=== PATIENT | female | born 1935 | race Two or more races ===

== ENCOUNTER 2018-11-09 16:33 | Inpatient (IN) | payer OTHER ==
[2018-11-11] MEDS ORDERED: MAGNESIUM HYDROXIDE 30 ML UDCUP PO PRN (15:24)
[2018-11-11] MEDS ORDERED: BISACODYL 10 MG SUPP PR PRN (15:24)
[2018-11-11] MEDS ORDERED: MAG HYDROX/AL HYDROX/SIMETH 30 ML UDCUP PO PRN (15:24)
--- NOTE | 2018-11-11 17:00 | PDOREHIP ---
Admission [facility] - Admission - 3 Day Assessment Period Admission Date/Day 1: 11/11/18 Day 2: 11/12/18 Day 3: 11/13/18 - Active Diagnoses Comorbidities and Co-existing Conditions at Admission: 49957. None of the Above
[2018-11-11] MEDS: CARVEDILOL 6.25 MG TAB PO SCH (17:47)
--- NOTE | 2018-11-11 21:26 | GHP ---
[f rep st] HISTORY AND PHYSICAL DATE OF ADMISSION: 11/11/2018 REFERRING PHYSICIAN: Kamran IMPAIRMENT GROUP: 1.1, left body involvement (right brain). DATE OF ONSET: 11/04/2018. TIME: 1500 hours. REHABILITATION DIAGNOSIS: Debility with mild left upper and left lower extremity weakness due to CVA, status post coronary artery stent placement, weakness and history of falls. ETIOLOGIC DIAGNOSIS: Cerebrovascular accident. DATE OF SURGERY: 11/04/2018. HISTORY OF PRESENT ILLNESS: This is an 83-year-old female who is being transferred from [facility] for comprehensive rehabilitation. Upon discharge from [facility] where she was admitted on 11/04/2018 with a history of falls. Her son was present and helped provide some of the prehospitalization history. According to her son, she had become weak 2 weeks prior to admission and had 2 separate falls in the independent living facility where she resides. According to the son, the first fall resulted in her lying on the floor for approximately 12 hours and he was initially unaware of this fall. She had a second fall where she landed on her left shoulder and her son decided to take her to her primary care physician who decided that further evaluation at the [facility] Emergency Department was recommended to evaluate for possible recent cerebrovascular accident. When she was evaluated, MRI of the brain was not possible secondary to some type of metal fragments or implants in her eyes. Her son states that he has reviewed all of her medical records and cannot find any evidence or reason for her having metal in her eyes, but does recall that she has had several eye surgeries. Carotid ultrasound duplex studies were performed bilaterally and showed mild bilateral carotid bulb plaques. No hemodynamically significant stenosis was found. Cardiac workup was consistent with asymptomatic NSTEMI with positive EKG for ischemia and injury with positive troponins. She was also noted to have rhabdomyolysis, hypertension, and hypothyroidism. Chest x-ray was positive for mild bilateral basilar opacities, likely atelectasis. Echo TTE with bubble showed an ejection fraction of 65% with negative bubble study. The patient was noted to have UTI and started on IV antibiotics. The patient was taken to the medical lab assistant on 11/06 with stent placement to the LAD. She was noted to have total occlusion of the RCA and therefore stent placement was not possible. She returned to the ICU on nitroglycerin for blood pressure control as CVA not acute and permissive HTN not a priority. Hospital day #3, she was re-initiated on home dose of valsartan and recently started beta shayan was increased with subsequent discontinuation of nitroglycerin. TTE on admission revealed apical akinesis, although overall ejection fraction was normal. Repeat TTE on hospital day #3 with normal ejection fraction and improved apical function, likely secondary to PCI and subsequent reperfusion of LAD territory. At that point, she was deemed medically stable and was recommended to be discharged to rehab facility for further strengthening and conditioning with a goal of having her return to independent living without assistance. STUDIES AND LABS DURING HOSPITALIZATION: As per HPI. This workup included TTE x2, head CT without contrast showed no acute intracranial abnormality. Chest x- ray showed mild bilateral basilar opacities likely atelectasis. Ultrasound carotid duplex bilateral showed mild bilateral carotid bulb plaque, no hemodynamically significant stenosis. Cardiac catheterization-discussed in HPI. VINCENZO also discussed in HPI. The received discharge summary did not include any laboratory studies. PRECAUTIONS: She is a fall risk. Aspiration precautions until cleared by speech therapy. Cardiac precautions. ACTIVE COMORBIDITIES: Coronary artery disease. PAST MEDICAL HISTORY: Hypertension, hypothyroidism, history of falls. PAST SURGICAL HISTORY: Cardiac stent placement, 11/06/2018. PRE-HOSPITAL MEDICATIONS: Hydrochlorothiazide and levothyroxine. ADMISSION MEDICATIONS: Aspirin EC 81 mg p.o. daily, atorvastatin calcium 80 mg p.o. at h.s. , carvedilol 12.5 mg p.o. twice daily, clopidogrel 75 mg daily, diclofenac sodium topical to left shoulder, levothyroxine 25 mcg p.o. daily, and valsartan 320 mg p.o. daily. ALLERGIES: No known drug allergies. PSYCHOSOCIAL HISTORY: She is . She lives in an independent living facility in [place]. Her son lives nearby and helps assist with and supervise medical care. Previously, she was functioning at a completely independent level prior to recent hospitalization. Nonsmoker. FAMILY HISTORY: Noncontributory. REVIEW OF SYSTEMS: CONSTITUTION: Denies fever, chills, night sweats or recent weight loss. HEENT: Denies dizziness. PULMONARY: Denies shortness of breath. CARDIAC: Denies chest pain, denies tongue claudication, jaw claudication or neck pain. Denies left upper extremity numbness or tingling. : She reports incontinence and wears an adult diaper for this. She denies dysuria. GI: Denies abdominal pain. Reports continence of bowel. NEUROLOGIC: Denies upper or lower extremity numbness, tingling, or weakness. PSYCH: Denies anxiety or depression. SKIN: She notes skin breakdown of both elbows. Otherwise, 10-point review of systems was negative. PHYSICAL EXAM: VITALS: Blood pressure 108/65, pulse 62, O2 saturation on room air 95%. CONSTITUTION: Lean, pleasant female, NAD. PSYCH: Pleasant and cooperative. Good historian. HEENT: EOMI, pupils equal, round, reactive to light and accommodation. Mucous membranes are mildly dry. Good dentition. Halitosis. HEART: Regular rate and rhythm without murmurs, rubs, or gallops. Good capillary refill in both lower extremities. LUNGS: Clear to auscultation bilaterally. ABDOMEN: Normoactive bowel sounds all 4 quadrants. Nontender. No hepatosplenomegaly. LYMPH: No lower extremity edema. CARDIOVASCULAR: Negative Homans test bilaterally. SKIN: She has ecchymoses over both elbows with Dermaguard on the left elbow. No swelling over the olecranon bursa. MUSCULOSKELETAL: Active range of motion of both shoulders is within normal limits with forward flexion and abduction to at least 140 degrees. She does report some mild subacromial pain at end range of left shoulder abduction. Normal and pain free right and left elbow flexion and extension, normal pain- free right and left wrist flexion, extension. Range of motion of the right and left hips, knees, and ankles are all within normal limits. No heel cord tightness noted bilaterally. NEUROLOGIC: Alert and oriented x3. Cranial nerves 2 -12 grossly intact. Motor testing reveals 4/5 strength of the left anterior and middle deltoid, biceps and wrist extensors. 5/5 internal, external rotators, left shoulder, 5/5, supraspinatus, left shoulder. Grossly normal motor exam, right upper and both lower extremities. Muscle stretch reflexes were unelicitable in the upper and lower extremities. Sensation to light touch was intact dermatomes C4-T1 and L2-S1 bilaterally. CURRENT LEVEL OF FUNCTION: Per the preadmission screen, she is on a regular diet, needs assisting for grooming and bathing. She is max assist with dressing upper and lower body. Needs assistance for toileting. Bladder: Not recorded on prescreen admission, but is wearing an adult diaper due to incontinence. Bowel: To be determined. Bed mobility: Mod assist x2. Toilet transfers: Min assist with FWW. Tub transfer: FWW. Shower transfer: Sitting SBA to CG. Standing CG to SBA. Good endurance. Able to walk 140 feet with min assist using FWW with a second assist to follow with wheelchair. The patient has a shuffling gait pattern and narrow JOSE. Assist for left handgrip on walker handle. Wheelchair use TBA. Stairs TBA. Safety precautions: She is a fall risk. Cognition: To be determined per Speech and Language Pathology. IMPRESSION: An 83-year-old female with recent history of falls x2, who was admitted to [facility] for further workup for suspected cerebrovascular accident. The patient had a head CT, which did not show evidence of intracranial abnormality. The patient could not have an MRI due to possible metal clips or metal artifact in the orbits. Cardiac workup showed NSTEMI with elevated troponins. She was taken to the medical lab assistant where she had a stent placed into the LAD. The RCA was completely occluded and could not be stented. She was stabilized in the ICU. Her blood pressure medications were adjusted and stabilized on carvedilol 12.5 mg twice daily. She was started on Lipitor, Plavix , and enteric-coated aspirin as well. She was felt to be medically stable enough to be transferred to a rehab facility. Her goal is to complete a rehabilitation stay and then to return back to her independent living facility. For safe discharge, it is expected that she will achieve independence in mobility and ADLs. If this is not accomplished, then she most likely will need to be placed in assisted living. She is admitted for comprehensive rehabilitation therapy, including physical therapy, occupational therapy, and speech and language pathology for 60 minutes per day for each discipline 5 to 7 days per week. Expected length of stay is 10 to 14 days. ASSESSMENT AND PLAN: 1. Hypertension. Monitor blood pressure each shift. Current blood pressure medication includes carvedilol 12.5 mg p.o. twice daily. The discharge summary also states that she is to begin valsartan 320 mg p.o. daily beginning on 2018. I have asked the nursing staff to confirm this with her physician from [facility]. We will continue to monitor blood pressures daily. 2. Hypothyroidism. Continue levothyroxine sodium 25 mcg p.o. daily. 3. Prophylaxis, cardiac. Continue Plavix 75 mg daily. Continue aspirin EC 81 mg daily. Continue Lipitor 80 mg p.o. h.s. 4. Pain management. Tylenol 650 mg p.o. q.4 hours p.r.n. pain. Diclofenac sodium topical gel, apply to left shoulder as needed for pain. 5. Risk for dehydration. We will check a basic metabolic profile in the morning. She is currently on a regular diet and do not expect this to change, unless deemed otherwise following speech and language pathology consult. P.o. fluids encouraged. 6. Left shoulder pain, probable rotator cuff contusion following fall on the left shoulder prior to hospitalization. Currently has normal glenohumeral abduction, forward flexion and internal, external rotation. Has normal strength of rotator cuff muscles. We will ask Physical therapy to provide exercises to strengthen the rotator cuff muscles, monitor for signs of impingement. 7. Deep venous thrombosis prophylaxis. Currently on enteric-coated aspirin 81 mg p.o. daily. We have ordered SCDs. 8. Wound care. She has abrasions on both elbows, more pronounced on the left. [place] Guard is in place on the left elbow. Nursing to provide wound care each shift. FOLLOWUP: Dr. Jamison Murillo, ; [facility], [phone]. DICTATION ENDS HERE. /[id number]/MODL and [id number]/MODL [facility]
[2018-11-11] MEDS: ATORVASTATIN CALCIUM 40 MG TAB PO SCH (21:40)
[2018-11-11] MEDS: SENNOSIDES/DOCUSATE SODIUM TAB PO SCH (21:40)
[2018-11-12] MEDS: LEVOTHYROXINE 25 MCG TAB PO SCH (05:44)
[2018-11-12 05:46] LABS: PLATELET COUNT 304 10^3/uL (150-400)
[2018-11-12] MEDS: CLOPIDOGREL BISULFATE 75 MG TAB PO SCH (10:36)
[2018-11-12] MEDS: ASPIRIN EC 81 MG TAB PO SCH (10:36)
[2018-11-12] MEDS: CARVEDILOL 6.25 MG TAB PO SCH ×2 (10:36→18:08)
[2018-11-12] MEDS: VALSARTAN 160 MG TAB PO SCH (10:37)
[2018-11-12] MEDS: SENNOSIDES/DOCUSATE SODIUM TAB PO SCH ×2 (10:37→20:05)
--- NOTE | 2018-11-12 11:57 | SOAPPROG ---
SOAP Progress Note Assessment/Plan: Assessment: ASSESSMENT AND PLAN: 1. Hypertension. Monitor blood pressure each shift. Current blood pressure medication includes carvedilol 12.5 mg p.o. twice daily. Blood pressure this morning 128/59. This may be secondary to the 2nd antihypertensive agent, valsartan being added. Will consult hospitalist further opinion regarding blood pressure management as she may do well on just 1 agent. The discharge summary also states that she is to begin valsartan 320 mg p.o. daily beginning on 11/12/2018. I have asked the nursing staff to confirm this with her physician from [facility]. We will continue to monitor blood pressures daily. 2. Hypothyroidism. Continue levothyroxine sodium 25 mcg p.o. daily. 3. Prophylaxis, cardiac. Continue Plavix 75 mg daily. Continue aspirin EC 81 mg daily. Continue Lipitor 80 mg p.o. h.s. 4. Pain management. Tylenol 650 mg p.o. q.4 hours p.r.n. pain. Diclofenac sodium topical gel, apply to left shoulder as needed for pain. 5. Risk for dehydration. We will check a basic metabolic profile in the morning. She is currently on a regular diet and do not expect this to change, unless deemed otherwise following speech and language pathology consult. P.O fluids encouraged. 6. Left shoulder pain, probable rotator cuff contusion following fall on the left shoulder prior to hospitalization. Currently has normal glenohumeral abduction, forward flexion and internal, external rotation. Has normal strength of rotator cuff muscles. We will ask Physical therapy to provide exercises to strengthen the rotator cuff muscles, monitor for signs of impingement. 7. Deep venous thrombosis prophylaxis. Currently on enteric-coated aspirin 81 mg p.o. daily. We have ordered SCDs. 8. Wound care. She has abrasions on both elbows, more pronounced on the left. [place] Guard is in place on the left elbow. Nursing to provide wound care each shift. 9. DISCHARGE DISPOSITION. Initial approval for inpatient rehabilitation 7 days. Discharge goal is to have her return to her independent living facility with some type of assistive device, probably a front wheeled walker. FOLLOWUP: Dr. Jamison Murillo, ; [facility], . Plan: 11/12/18 11:48 Subjective: No specific complaints this morning. Reports mild weakness of her left arm and left leg. Denies headache, denies feeling lightheaded. Objective: Vital Signs Temp Pulse Resp BP Pulse Ox 36.6 C 65 15 128/59 H 93 11/12/18 05:52 11/12/18 10:36 11/12/18 05:52 11/12/18 10:37 11/12/18 05:52 Laboratory Results 11/12/18 05:07 11/12/18 05:07 11/11/18 11/12/18 11/13/18 05:59 05:59 05:59 Intake Total 450 Output Total 800 300 Balance -350 -300 Physical Exam - Physical Exam General Appearance: WD/WN, alert, no apparent distress Respiratory: lungs clear, normal breath sounds Abdomen: normal bowel sounds, non-tender, soft Skin: other (Abrasions on both) Extremities: No swelling, No Ilana's sign Neuro/Psych: motor weakness (Mild left upper and left lower extremity weakness but has antigravity strength in all major muscle groups) ICD10 Worksheet Patient Problems: Problems Problem Status Onset CVA (cerebral vascular accident) Acute - ICD10 Problem Qualifiers (1) CVA (cerebral vascular accident)
--- NOTE | 2018-11-12 12:02 | PDOREHIP ---
Admission [facility] - Admission - 3 Day Assessment Period Admission Date/Day 1: 11/11/18 Day 2: 11/12/18 Day 3: 11/13/18 - Active Diagnoses Comorbidities and Co-existing Conditions at Admission: 27558. PVD or PAD ( Coronary artery disease) - Skin Conditions Unhealed Pressure Ulcer (1 or more/Stage 1 or >)-Admission: 0. No # Stage 1 Pressure Ulcers-Admission: 0 # Stage 2 Pressure Ulcers-Admission: 0 # Stage 3 Pressure Ulcers-Admission: 0 # Stage 4 Pressure Ulcers-Admission: 0 # Unstageable Pressure Ulcers (Non-remove Dress)-Admission: 0 # Unstageable Pressure Ulcers (Slough/Eschar)-Admission: 0 # Unstageable Pressure Ulcers (Deep Tissue Injury)-Admission: 0
--- NOTE | 2018-11-12 12:48 | WOCRNPDOC ---
WOCRN Advanced Assessment Note - Skin Integrity Problem, Advanced Assess Left Elbow Dressing Type: Hydrocolloid Dressing Description: Clean/Dry, Intact Wound Bed Color: [place] Wound Bed Constitution: Healed Wound Edges: Epithelizing Skin Integrity Problem Comment: Dressing removed gently to reveal newly epithelized wound to left elbow of unknown etiology, possibly skin tear. Will recommend to protect bilateral elbows with dressing. Cheryl HOANG in room for care. Wound care will sign off. Reconsult if needed. Coccyx Dressing Type: Mepilex Border Dressing Description: Clean/Dry, Intact Wound Bed Constitution: Healed Wound Edges: Epithelizing Site Measurement - Head-to-Toe Length X Width X Depth (cm): 2x3x0 Pressure Injury Present on Admit: Yes Skin Integrity Problem Comment: Healed sacral pressure injury. Will continue to protect with Mepilex Border sacral dressing. Cheryl HOANG in room for assessment. Wound care will sign off.
[2018-11-12] MEDS: ATORVASTATIN CALCIUM 40 MG TAB PO SCH (20:05)
[2018-11-13] MEDS: ACETAMINOPHEN 325 MG TAB PO PRN (02:18)
[2018-11-13] MEDS: LEVOTHYROXINE 25 MCG TAB PO SCH (05:43)
[2018-11-13] MEDS: SENNOSIDES/DOCUSATE SODIUM TAB PO SCH ×2 (08:31→20:15)
[2018-11-13] MEDS: VALSARTAN 160 MG TAB PO SCH (08:31)
[2018-11-13] MEDS: CLOPIDOGREL BISULFATE 75 MG TAB PO SCH (08:31)
[2018-11-13] MEDS: CARVEDILOL 6.25 MG TAB PO SCH ×2 (08:31→17:43)
[2018-11-13] MEDS: ASPIRIN EC 81 MG TAB PO SCH (08:31)
[2018-11-13] MEDS: DICLOFENAC SODIUM 1% 100 GM GEL TP PRN ×2 (10:03→20:29)
--- NOTE | 2018-11-13 11:41 | SOAPPROG ---
SOAP Progress Note Assessment/Plan: ASSESSMENT AND PLAN: Weakness. Patient reports increased weakness compared to 24 hr prior. This has also been noted by rehab staff. On this morning's rounds, patient reports feeling generally weak and but does not describe new onset weakness of left upper or left lower extremity. Mental status change. Patient is alert and oriented and answers questions appropriately on this morning's exam however during team meeting this morning all involved therapy staff also agree that patient has change in mental status regarding sequencing during therapy sessions and talking tangentially. Will obtain head CT today to rule out new cerebrovascular accident. Will obtain CBC with differential, Chem 7 and urinalysis as part of workup. Hypertension. Current blood pressure medication includes carvedilol 12.5 mg p.o. twice daily. Blood pressure this morning 128/59. This may be secondary to the 2nd antihypertensive agent, valsartan being added. The discharge summary also states that she is to begin valsartan 320 mg p.o. daily beginning on 11/12/2018. I have asked the nursing staff to confirm this with her physician from [facility]. We will continue to monitor blood pressures daily. Hypothyroidism. Continue levothyroxine sodium 25 mcg p.o. daily. Will check TFTs today. Prophylaxis, cardiac. Continue Plavix 75 mg daily. Continue aspirin EC 81 mg daily. Continue Lipitor 80 mg p.o. h.s. Pain management. Tylenol 650 mg p.o. q.4 hours p.r.n. pain. Diclofenac sodium topical gel, apply to left shoulder as needed for pain. Risk for dehydration. We will check a basic metabolic profile in the morning. She is currently on a regular diet and do not expect this to change, unless deemed otherwise following speech and language pathology consult. P.O fluids encouraged. Left shoulder pain, probable rotator cuff contusion following fall on the left shoulder prior to hospitalization. Currently has normal glenohumeral abduction, forward flexion and internal, external rotation. Has normal strength of rotator cuff muscles. We will ask Physical therapy to provide exercises to strengthen the rotator cuff muscles, monitor for signs of impingement. Deep venous thrombosis prophylaxis. Currently on enteric-coated aspirin 81 mg p.o. daily and enteric-coated aspirin. We have ordered SCDs. Wound care. She has abrasions on both elbows, more pronounced on the left. [place] Guard is in place on the left elbow. Nursing to provide wound care each shift. DISCHARGE DISPOSITION. Initial approval for inpatient rehabilitation 7 days. Discharge goal is to have her return to her independent living facility with some type of assistive device, probably a front wheeled walker. FOLLOWUP: Dr. Jamison Murillo, ; [facility], . Subjective: She reports that she feels weak this morning. She has no specific complaints regarding new onset of pain and/or left upper or lower extremity sensory disturbance or progressive weakness. Denies anginal like symptoms. Does not report jaw or tongue claudication Denies shortness of breath. Rehab staff during team meeting conveys possible change in mental status with patient being less organized and at time tangential which is a clear change from yesterday with all of rehab staff agreeing. Objective: Vital Signs Temp Pulse Resp BP Pulse Ox 36.3 C 74 15 144/78 H 92 11/13/18 05:49 11/13/18 08:31 11/13/18 05:49 11/13/18 08:31 11/13/18 05:49 Laboratory Results 11/12/18 05:07 11/12/18 05:07 11/12/18 11/13/18 11/14/18 05:59 05:59 05:59 Intake Total 450 750 400 Output Total 800 600 Balance -350 150 400 Physical Exam - Physical Exam General Appearance: WD/WN, alert, moderate distress EENT: PERRL/EOMI, other (Oral mucosa moist), No scleral icterus (R), No scleral icterus (L) Neck: supple, normal inspection Respiratory: normal breath sounds, other (Tachypneic at 32), No crackles, No rales, No rhonchi, No stridor, No wheezing Cardiac/Chest: regular rate, rhythm, other (Pulse 60 and regular), No edema, No JVD Abdomen: normal bowel sounds, non-tender, soft, distended Skin: normal color, warm/dry Extremities: No swelling, No Ilana's sign ICD10 Worksheet Patient Problems: Problems Problem Status Onset CVA (cerebral vascular accident) Acute Weakness Acute - ICD10 Problem Qualifiers (1) Weakness
[2018-11-13 12:22] LABS: PLATELET COUNT 315 10^3/uL (150-400)
--- NOTE | 2018-11-13 17:57 | GCON ---
[f rep st] CONSULTATION NEUROLOGIC CONSULTATION REFERRING PHYSICIAN: Gonzalo Chiu MD HISTORY: The patient is an 83-year-old woman who is here on the rehab service for rehabilitation fol lowing a stroke where she presented in [place], and coronary disease status post stenting procedure. History is obtained from discussions with her son, as well as reviewing the medical records. The r melquiades I was consulted today was because she seemed relatively worse and was particularly fatigued com pared to where she had been. The patient had a head CT at [facility], which was negative, but N eurology definitely felt she had a stroke and she had documentation of left arm and leg weakness. Jossy casas has started the rehabilitation process here and says she just feels tired. She does not have a prior history of known stroke, but over the last 3 weeks she had been having some troubles with her left hand. She was actually put on heparin while she was in the hospital there, p resumably for concern that there might be a pre-occlusive process. The transthoracic echocardiogram did not show a PFO or any embolic source. The carotid ultrasounds s howed mild plaquing. PAST MEDICAL HISTORY: Prior history of hypertension, hypothyroidism, and cataract surgery. She is an independent living facility prior to this hospitalization in [place], but over a week ago she had fallen and was not found until the next day. On admission here to the rehab service, she was noted to have intact cranial nerves and some 4/5 stre ngth in the left upper extremity. Otherwise, no focal weakness. REVIEW OF SYSTEMS: She denies chest pain, palpitations, or shortness of breath, but says she has a l ot of fatigue and low energy. PHYSICAL EXAMINATION: CURRENT VITAL SIGNS: Blood pressure is 144/78, pulse of 74, respirations 15, temperature 36.3. GENERAL: She is a well-developed, lying in the bed, frail, older woman who is reyes y thin. HEENT: Pupils 3 mm and reactive. Extraocular movements intact. Normal facial sensation an d strength. Palate elevates symmetrically. Tongue protrudes midline. NEUROLOGIC: She is fully selene ented and able to follow commands. She has a drift in the left upper extremity with 4/5 strength. R ight upper extremity is minimally weak relative to the left. Lower extremities, there is mild proxim al muscle weakness, 4/5, but distally about the same, and I cannot detect a clear asymmetry there. R eflexes are about 1+ and symmetric. Sensation is preserved. She has discoordinated movements that a re prominent in the left arm on [id number] compared to the right. I reviewed the head CT and agree with radiologic interpretation of probable subacute infarctions in t he right basal ganglia region and in the head of the caudate. IMPRESSION: Total unit time of 55 minutes. The patient has an NIH Stroke Scale of 2. She probably had this stroke, as they felt already in [place], but the imaging was negative and certainly did not rule it out. Now we are capturing the evolution of stroke in the basal ganglia and she is probably getting a little relative worsening with the edema. That should gradually stabilize. She is on a co mbination of aspirin and Plavix with a recent stent and that is appropriate for secondary stroke prop hylaxis as well. She is already on statin therapy, which she should continue indefinitely. No addit ional neurologic workup is required here and I will sign off, but happy to answer any additional ques tions as they may arise. /[id number]/MODL
[2018-11-13] MEDS: ATORVASTATIN CALCIUM 40 MG TAB PO SCH (20:15)
[2018-11-14] MEDS: LEVOTHYROXINE 25 MCG TAB PO SCH (05:53)
[2018-11-14] MEDS: ASPIRIN EC 81 MG TAB PO SCH (09:06)
[2018-11-14] MEDS: CARVEDILOL 6.25 MG TAB PO SCH ×2 (09:06→17:35)
[2018-11-14] MEDS: CLOPIDOGREL BISULFATE 75 MG TAB PO SCH (09:06)
[2018-11-14] MEDS: VALSARTAN 160 MG TAB PO SCH (09:06)
[2018-11-14] MEDS: SENNOSIDES/DOCUSATE SODIUM TAB PO SCH ×2 (09:07→20:27)
--- NOTE | 2018-11-14 10:05 | SOAPPROG ---
SOAP Progress Note Assessment/Plan: ASSESSMENT AND PLAN: CVA with mild left hemiparesis. Left upper extremity weakness greater than left lower extremity weakness but not worsened compared to admission exam. Has functional strength in both left upper and left lower extremity. Due to possible change in mental status yesterday, repeat head CT without contrast was obtained and showed subacute infarct in the right basal ganglia and adjacent to the right caudate. Discussed case with Dr. Harper who saw patient in consultation. Consult reviewed and appreciated. No additional diagnostic studies or change in treatment plan was recommended. Possible UTI. Urinalysis results from 11/13 Nitrate negative, leuk esterase +1 , WBCs 15-25. Did not obtain culture and sensitivity and therefore will repeat urinalysis and have ordered culture if indicated. Her white count from 11/13 was elevated at 10 and was noted to be increased from prior WBC of 5.99 on admission. Leukocytosis. White blood count from 11/13 10.0. Possible UTI. Repeating UA with culture if indicated today Hypertension. Blood pressure on 11/14 135/61. Current blood pressure medication includes carvedilol 12.5 mg p.o. twice daily. Blood pressure 11/13 128/59. This may be secondary to the 2nd antihypertensive agent, valsartan being added. Will hold valsartan and continue to monitor daily blood pressures. The discharge summary states that she is to begin valsartan 320 mg p.o. daily beginning on 11/12/2018. Hypothyroidism. Continue levothyroxine sodium 25 mcg p.o. daily. Thyroid stimulating hormone from 11/13 1.64 Prophylaxis, cardiac. Continue Plavix 75 mg daily. Continue aspirin EC 81 mg daily. Continue Lipitor 80 mg p.o. h.s. No changes recommended per Neurology consult on 11/13 Pain management. Tylenol 650 mg p.o. q.4 hours p.r.n. pain. Diclofenac sodium topical gel, apply to left shoulder as needed for pain. Risk for dehydration. BUN/CREATININE FROM 11/13 WAS 13/0.6. She is currently on a regular diet and do not expect this to change, unless deemed otherwise following speech and language pathology consult. P.O fluids encouraged. Left shoulder pain, probable rotator cuff contusion following fall on the left shoulder prior to hospitalization. Currently has normal glenohumeral abduction, forward flexion and internal, external rotation. Has normal strength of rotator cuff muscles. We will ask Physical therapy to provide exercises to strengthen the rotator cuff muscles, monitor for signs of impingement. Deep venous thrombosis prophylaxis. Currently on enteric-coated aspirin 81 mg p.o. daily and enteric-coated aspirin. We have ordered SCDs. NO CHANGES RECOMMENDED PER NEUROLOGY CONSULTATION ON 11/13 Wound care. She has abrasions on both elbows, more pronounced on the left. [place] Guard is in place on the left elbow. Nursing to provide wound care each shift. DISCHARGE DISPOSITION. Initial approval for inpatient rehabilitation 7 days. Discharge goal is to have her return to her independent living facility with some type of assistive device, probably a front wheeled walker. FOLLOWUP: Dr. Jamison Murillo, ; [facility], [phone]. 11/14/18 10:03 11/14/18 10:05 11/14/18 10:06 Subjective: She complains of the weakness in the left hand and left leg, but does not describe worsening left-sided weakness or numbness in the face or new onset dysphagia. Objective: Vital Signs Temp Pulse Resp BP Pulse Ox 36.8 C 65 16 135/61 H 96 11/14/18 07:16 11/14/18 09:06 11/13/18 19:41 11/14/18 09:06 11/13/18 19:41 Laboratory Results 11/13/18 12:00 11/13/18 12:00 11/13/18 11/14/18 11/15/18 05:59 05:59 05:59 Intake Total 750 1250 Output Total 600 500 50 Balance 150 750 -50 Physical Exam - Physical Exam General Appearance: WD/WN, alert, no apparent distress, other (Appears less anxious this morning.) EENT: PERRL/EOMI, pharynx normal Respiratory: lungs clear, normal breath sounds Cardiac/Chest: regular rate, rhythm, No edema Abdomen: normal bowel sounds, non-tender, soft Skin: warm/dry Extremities: No swelling, No Ilana's sign (Left upper greater than left lower extremity weakness but has preserved functional strength in left upper and left lower extremity. 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 4/5 left hip flexors, quadriceps, hamstring and tibialis anterior) Neuro/Psych: alert, normal mood/affect, oriented x 3, motor weakness ICD10 Worksheet Patient Problems: Problems Problem Status Onset CVA (cerebral vascular accident) Acute Weakness Acute - ICD10 Problem Qualifiers (1) Weakness
[2018-11-14] MEDS: ATORVASTATIN CALCIUM 40 MG TAB PO SCH (20:27)
[2018-11-15] MEDS: LEVOTHYROXINE 25 MCG TAB PO SCH (06:10)
[2018-11-15] MEDS: CARVEDILOL 6.25 MG TAB PO SCH ×2 (08:16→17:28)
[2018-11-15] MEDS: CLOPIDOGREL BISULFATE 75 MG TAB PO SCH (08:17)
[2018-11-15] MEDS: ASPIRIN EC 81 MG TAB PO SCH (08:17)
[2018-11-15] MEDS: SENNOSIDES/DOCUSATE SODIUM TAB PO SCH ×2 (08:17→20:15)
--- NOTE | 2018-11-15 09:57 | SOAPPROG ---
SOAP Progress Note Assessment/Plan: ASSESSMENT AND PLAN: CVA with mild left hemiparesis. MOTOR EXAM THIS MORNING DEMONSTRATES 4+/5 PROXIMAL AND DISTAL MUSCLE GROUPS OF BOTH UPPER AND LOWER EXTREMITIES. 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 Due to possible change in mental status FRIDAY, repeat head CT without contrast was obtained and showed subacute infarct in the right basal ganglia and adjacent to the right caudate. Discussed case with Dr. Harper who saw patient in consultation. Consult reviewed and appreciated. No additional diagnostic studies or change in treatment plan was recommended. Possible UTI. URINALYSIS WAS REPEATED YESTERDAY BECAUSE INITIAL UA DID NOT INCLUDE CULTURE IF INDICATED. LEUK ESTERASE 1+, WBC 15-25, TRACE BACTERIA. CULTURE PENDING. Her white count from 11/13 was elevated at 10 and was noted to be increased from prior WBC of 5.99 on admission. Leukocytosis. White blood count from 11/13 10.0. Possible UTI. WILL REPEAT CBC WITH DIFF FOR 11/16. WILL START ON BACTRIM DS EMPIRICALLY. PATIENT'S ONLY SYMPTOMS ARE FREQUENCY AND URGENCY AT NIGHT. NO COMPLAINTS OF DYSURIA OR SUPRAPUBIC PAIN. NO SUPRAPUBIC TENDERNESS ON EXAM. WILL OBTAIN CHEST X-RAY PA AND LATERAL RULE OUT PNEUMONIA HYPONATREMIA. BEGIN SODIUM CHLORIDE TABLETS 1 MG THREE TIMES DAILY WITH MEALS. FLUID RESTRICTION OF 1 L NEXT 48 HR. REPEAT BMP A.M. OF 11/16. NOCTURIA-PATIENT AND NURSING STAFF REPORTED URINARY FREQUENCY AND URGENCY LAST NIGHT WITH LITTLE OUTPUT. PATIENT TRIED EXTERNAL CATHETER WITHOUT SUCCESS. SYMPTOMS POSSIBLY RELATED TO UTI ALTHOUGH IT URINALYSIS RESULTS NOT VERY IMPRESSIVE FOR UTI. WE WILL BEGIN BACTRIM DS TWICE DAILY EMPIRICALLY. BEGIN TAMSULOSIN 0.4 MG TONIGHT. PVRs x 2 order written nurses made aware. Hypertension. BLOOD PRESSURE THIS MORNING, 11/15 137/60. Current blood pressure medication includes carvedilol 12.5 mg p.o. twice daily. Blood pressure 11/13 128/59. This may be secondary to the 2nd antihypertensive agent, valsartan being added. Will hold valsartan and continue to monitor daily blood pressures. The discharge summary states that she is to begin valsartan 320 mg p.o. daily beginning on 11/12/2018. Hypothyroidism. Continue levothyroxine sodium 25 mcg p.o. daily. Thyroid stimulating hormone from 04/12 1.64 Prophylaxis, cardiac. Continue Plavix 75 mg daily. Continue aspirin EC 81 mg daily. Continue Lipitor 80 mg p.o. h.s. No changes recommended per Neurology consult on 11/13 Pain management. Tylenol 650 mg p.o. q.4 hours p.r.n. pain. Diclofenac sodium topical gel, apply to left shoulder as needed for pain. Risk for dehydration. BUN/CREATININE FROM 11/13 WAS 13/0.6. She is currently on a regular diet and do not expect this to change, unless deemed otherwise following speech and language pathology consult. P.O fluids encouraged. Left shoulder pain, probable rotator cuff contusion following fall on the left shoulder prior to hospitalization. Currently has normal glenohumeral abduction, forward flexion and internal, external rotation. Has normal strength of rotator cuff muscles. We will ask Physical therapy to provide exercises to strengthen the rotator cuff muscles, monitor for signs of impingement. Deep venous thrombosis prophylaxis. Currently on enteric-coated aspirin 81 mg p.o. daily and enteric-coated aspirin. We have ordered SCDs. NO CHANGES RECOMMENDED PER NEUROLOGY CONSULTATION ON 11/13 Wound care. She has abrasions on both elbows, more pronounced on the left. [place] Guard is in place on the left elbow. Nursing to provide wound care each shift. DISCHARGE DISPOSITION. Initial approval for inpatient rehabilitation 7 days. Discharge goal is to have her return to her independent living facility with some type of assistive device, probably a front wheeled walker. FOLLOWUP: Dr. Jamison Murillo, ; [facility], [phone]. 11/15/18 09:58 Subjective: Patient and nursing staff report that she had urinary frequency last night with very little output. External catheter was tried but was not helpful and was subsequently removed. Patient denies dysuria, suprapubic pain or current feeling of urgency. Objective: Vital Signs Temp Pulse Resp BP Pulse Ox 36.9 C 68 16 137/60 H 92 11/15/18 05:59 11/15/18 08:16 11/15/18 05:59 11/15/18 08:16 11/15/18 05:59 Laboratory Results 11/13/18 12:00 11/13/18 12:00 11/14/18 11/15/18 11/16/18 05:59 05:59 05:59 Intake Total 1250 560 Output Total 500 450 Balance 750 110 Physical Exam - Physical Exam General Appearance: alert, no apparent distress Respiratory: lungs clear, normal breath sounds Cardiac/Chest: regular rate, rhythm, No edema Abdomen: normal bowel sounds, non-tender, soft, other (No suprapubic tenderness) Skin: warm/dry Extremities: No swelling, No Ilana's sign Neuro/Psych: alert, normal mood/affect, oriented x 3, motor weakness (Has 4+/5 proximal distal muscle groups right and left upper and lower extremities.), No speech abnormalities ICD10 Worksheet Patient Problems: Problems Problem Status Onset CVA (cerebral vascular accident) Acute Weakness Acute - ICD10 Problem Qualifiers (1) Weakness
[2018-11-15] MEDS ORDERED: SULFAMETHOX/TMP 800/160 MG 1 TAB PO SCH (10:00)
[2018-11-15] MEDS: SODIUM CHLORIDE 1,000 MG TAB PO SCH ×2 (11:59→17:29)
[2018-11-15] MEDS: TAMSULOSIN HCL 0.4 MG CAP PO SCH (18:23)
[2018-11-15] MEDS: ATORVASTATIN CALCIUM 40 MG TAB PO SCH (20:36)
[2018-11-16 05:20] LABS: PLATELET COUNT 340 10^3/uL (150-400)
[2018-11-16] MEDS: LEVOTHYROXINE 25 MCG TAB PO SCH (06:26)
[2018-11-16] MEDS: CARVEDILOL 6.25 MG TAB PO SCH ×2 (08:57→18:00)
[2018-11-16] MEDS: SODIUM CHLORIDE 1,000 MG TAB PO SCH ×3 (08:58→18:00)
[2018-11-16] MEDS: ASPIRIN EC 81 MG TAB PO SCH (08:58)
[2018-11-16] MEDS: CLOPIDOGREL BISULFATE 75 MG TAB PO SCH (08:58)
[2018-11-16] MEDS: TAMSULOSIN HCL 0.4 MG CAP PO SCH (08:58)
[2018-11-16] MEDS: VALSARTAN 160 MG TAB PO SCH (08:58)
[2018-11-16] MEDS: SENNOSIDES/DOCUSATE SODIUM TAB PO SCH ×2 (08:59→20:57)
--- NOTE | 2018-11-16 13:12 | SOAPPROG ---
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 Standby to minimal assist for bed mobility. Minimal assist for transfers. Ambulated less than 50 ft with front wheeled walker and cues. Grooming and hygiene are done seated with standby assist. Dressing upper and lower body require with maximal assist. Cognitive impairment with decreased attention and tangentiality. Was assessed by speech language pathology and no further treatment is indicated. Question of dysphagia. Will have reassessment per speech language pathology, . Question of UTI. Was begun on Bactrim for leukocytosis and subsequently changed to cephalexin. She denies, and staff have not documented, symptoms consistent with UTI. Symptoms of urinary retention appear to have improved with tamsulosin. Urine culture has grown Enterococcus faecalis which is likely resistant to cephalexin and Bactrim, and most likely represents asymptomatic bacteriuria. * Discontinue antibiotics 11/16/2018. Observe for signs or symptoms of UTI. Hyponatremia * Improving on labs 11/16/2018, with an a 132. Continue fluid restriction and sodium chloride tablets. * Recheck BMP 11/18/2018. Anemia, slight worsening on labs 11/16/2018. * And reticulocyte count to labs of 11/16/2018. NSTEMI status post angioplasty and stenting of LAD; also distal RCA lesion that was not stentable. * Continue clopidogrel 75 mg daily. Continue aspirin EC 81 mg daily. Continue atorvastatin 80 mg p.o. h.s. Hypertension. Continue carvedilol and valsartan. Hypothyroidism. Continue levothyroxine. Contact isolation for MRSA positive nasal smear in the hospital. * Per e-mail communication from infectious disease: chlorhexidine wash daily and Bactroban to nares bid X 3 days without need for isolation thereafter. Will clarify instructions regarding chlorhexidine wash to determine what part of body is to be washed. Rhabdomyolysis after prolonged. Down prior to hospitalization. Renal function appears has recovered. DISPOSITION: Her goal is to return to independent living in [place], where she lives by herself. She has a local son in [place]. Tentative discharge date set for 12/01/2018. Follow-up: Dr. Jamison Murillo, Cardiology, ; [facility], [phone]. 11/16/18 12:29 Subjective: No complaints. Slept well. Denies cough or dyspnea. Had urinary symptoms for 1 night with urinary frequency but has not had fevers or chills, flank pain, suprapubic pain or dysuria. Objective: Vital Signs Temp Pulse Resp BP Pulse Ox 36.6 C 64 16 152/67 H 93 11/16/18 07:17 11/16/18 08:57 11/16/18 07:17 11/16/18 08:58 11/16/18 07:17 Laboratory Results 11/16/18 04:40 11/16/18 04:40 11/15/18 11/16/18 11/17/18 05:59 05:59 05:59 Intake Total 560 1000 100 Output Total 450 625 Balance 110 375 100 Physical Exam - Physical Exam General Appearance: WD/WN, alert, no apparent distress Respiratory: normal breath sounds, other (Tachypneic), No crackles, No rhonchi, No wheezing Cardiac/Chest: regular rate, rhythm, JVD, No edema, No diastolic murmur, No systolic murmur Skin: normal color, warm/dry Neuro/Psych: alert, normal mood/affect, oriented x 3 ICD10 Worksheet Patient Problems: Problems Problem Status Onset CVA (cerebral vascular accident) Acute Weakness Acute
[2018-11-16] MEDS: ATORVASTATIN CALCIUM 40 MG TAB PO SCH (20:57)
[2018-11-17] MEDS: LEVOTHYROXINE 25 MCG TAB PO SCH (05:22)
[2018-11-17] MEDS: TAMSULOSIN HCL 0.4 MG CAP PO SCH (08:28)
[2018-11-17] MEDS: VALSARTAN 160 MG TAB PO SCH (08:28)
[2018-11-17] MEDS: ASPIRIN EC 81 MG TAB PO SCH (08:28)
[2018-11-17] MEDS: CARVEDILOL 6.25 MG TAB PO SCH ×2 (08:28→17:27)
[2018-11-17] MEDS: SENNOSIDES/DOCUSATE SODIUM TAB PO SCH ×2 (08:29→20:04)
[2018-11-17] MEDS: CLOPIDOGREL BISULFATE 75 MG TAB PO SCH (08:29)
[2018-11-17] MEDS: SODIUM CHLORIDE 1,000 MG TAB PO SCH ×3 (08:29→17:27)
--- NOTE | 2018-11-17 12:09 | SOAPPROG ---
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 Standby to minimal assist for bed mobility. Minimal assist for transfers. Ambulated less than 50 ft with front wheeled walker and cues. Grooming and hygiene are done seated with standby assist. Dressing upper and lower body require with maximal assist. Cognitive impairment with decreased attention and tangentiality. Was assessed by speech language pathology and no further treatment is indicated. Mild dysphagia. * Seen by speech therapy 11/16/2018. Safe for regular texture and thin liquids. Supervision for meals. 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 Question of UTI. Was begun on Bactrim for leukocytosis and subsequently changed to cephalexin. She denies, and staff have not documented, symptoms consistent with UTI. Symptoms of urinary retention appear to have improved with tamsulosin. Urine culture has grown Enterococcus faecalis which is likely resistant to cephalexin and Bactrim, and most likely represents asymptomatic bacteriuria. * Discontinue antibiotics 11/16/2018. Observe for signs or symptoms of UTI. Hyponatremia * Improving on labs 11/16/2018, with an a 132. Continue fluid restriction and sodium chloride tablets. * Recheck BMP 11/18/2018. Anemia, slight worsening on labs 11/16/2018. * Low reticulocytosis, normal B12 on labs of 11/16/2018. * Has reduced transferrin saturation but normal iron and TIBC. * Recheck 11/18/2018. Will also check ferritin. NSTEMI status post angioplasty and stenting of LAD; also distal RCA lesion that was not stentable. * Continue clopidogrel 75 mg daily. Continue aspirin EC 81 mg daily. Continue atorvastatin 80 mg p.o. h.s. Hypertension. Continue carvedilol and valsartan. Hypothyroidism. Continue levothyroxine. * TSH normal, 11/16/2018. Contact isolation for MRSA positive nasal smear in the hospital. * Per e-mail communication from infectious disease: whole body chlorhexidine wash daily and Bactroban to nares bid X 3. * Discussed with nursing. Easier to continue gown and gloves precaution when in patient's room. Rhabdomyolysis after prolonged. Down prior to hospitalization. Renal function appears has recovered. DISPOSITION: Her goal is to return to independent living in [place], where she lives by herself. She has a local son in [place]. Tentative discharge date set for 12/01/2018. Follow-up: Dr. Jamison Murillo, Cardiology, ; [facility], [phone]. 11/17/18 12:04 Subjective: No complaints. Slept well. Not in pain. Good appetite, no nausea, vomiting, constipation or diarrhea. No cough or dyspnea. She awoke wants to urinate, but breathing issues have not complicated sleep. Objective: Vital Signs Temp Pulse Resp BP Pulse Ox 36.8 C 59 L 15 155/69 H 94 11/17/18 05:16 11/17/18 05:16 11/17/18 05:16 11/17/18 05:16 11/17/18 05:16 Microbiology 11/13/18 17:55 Urine Culture - Final Urine,Clean Catch Enterococcus Faecalis Gram Negative [place] Types Laboratory Results 11/16/18 04:40 11/16/18 04:40 11/16/18 11/17/18 11/18/18 05:59 05:59 05:59 Intake Total 1000 850 Output Total 625 675 400 Balance 375 175 -400 Physical Exam - Physical Exam General Appearance: WD/WN, alert, no apparent distress Respiratory: normal breath sounds, No crackles, No rhonchi, No wheezing Cardiac/Chest: regular rate, rhythm, No edema, No JVD, No diastolic murmur, No systolic murmur Skin: normal color, warm/dry Neuro/Psych: alert, normal mood/affect, oriented x 3, motor weakness (Left upper extremity) ICD10 Worksheet Patient Problems: Problems Problem Status Onset CVA (cerebral vascular accident) Acute Weakness Acute
[2018-11-17] MEDS: AQUAPHOR OINTMENT 3.5 OZ JAR TP SCH (17:28)
[2018-11-17] MEDS: ATORVASTATIN CALCIUM 40 MG TAB PO SCH (20:04)
[2018-11-18] MEDS: LEVOTHYROXINE 25 MCG TAB PO SCH (05:21)
[2018-11-18 05:30] LABS: PLATELET COUNT 361 10^3/uL (150-400)
[2018-11-18] MEDS: SODIUM CHLORIDE 1,000 MG TAB PO SCH ×3 (08:00→17:51)
[2018-11-18] MEDS: CARVEDILOL 6.25 MG TAB PO SCH ×2 (08:03→17:51)
[2018-11-18] MEDS: VALSARTAN 160 MG TAB PO SCH (08:54)
[2018-11-18] MEDS: CLOPIDOGREL BISULFATE 75 MG TAB PO SCH (08:55)
[2018-11-18] MEDS: ASPIRIN EC 81 MG TAB PO SCH (08:55)
[2018-11-18] MEDS: TAMSULOSIN HCL 0.4 MG CAP PO SCH (08:55)
[2018-11-18] MEDS: SENNOSIDES/DOCUSATE SODIUM TAB PO SCH ×2 (08:56→21:02)
--- NOTE | 2018-11-18 09:37 | SOAPPROG ---
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 Standby to minimal assist for bed mobility. Minimal assist for transfers. Ambulated less than 50 ft with front wheeled walker and cues. Grooming and hygiene are done seated with standby assist. Dressing upper and lower body require with maximal assist. Cognitive impairment with decreased attention and tangentiality. Was assessed by speech language pathology and no further treatment is indicated. Mild dysphagia. * Seen by speech therapy 11/16/2018. Safe for regular texture and thin liquids. Supervision for meals. 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 Hyponatremia * Improving on labs 11/16/2018, with Na 132. Continue fluid restriction and sodium chloride tablets. * Stable on BMP 11/18/2018 with Na 131. Tachypnea and fatigue, 11/18/2018. * Chest x-ray, CBC and clinical scenario not consistent with pneumonia. Has cardiomegaly but otherwise no signs of heart failure. * Elevated D-dimer. Get chest CT to rule out pulmonary embolus. Anemia, slight worsening on labs 11/16/2018. * Low reticulocytosis, normal B12 on labs of 11/16/2018. * Has reduced transferrin saturation but normal iron and TIBC. * Improving on labs 11/18/2018. Ferritin in normal range. Will not initiate iron replacement. NSTEMI status post angioplasty and stenting of LAD; also distal RCA lesion that was not stentable. * Continue clopidogrel 75 mg daily. Continue aspirin EC 81 mg daily. Continue atorvastatin 80 mg p.o. h.s. Hypertension. Continue carvedilol and valsartan. Pruritus noticed by nursing 11/17/2018. Treated with Aquaphor emollient. LFTs normal; doubt adverse effect of statin. Question of UTI. Was begun on Bactrim for leukocytosis and subsequently changed to cephalexin. She denies, and staff have not documented, symptoms consistent with UTI. Symptoms of urinary retention appear to have improved with tamsulosin. Urine culture has grown Enterococcus faecalis which is likely resistant to cephalexin and Bactrim, and most likely represents asymptomatic bacteriuria. * Discontinue antibiotics 11/16/2018. Observe for signs or symptoms of UTI. * WBC is normal, 11/18/2018. Hypothyroidism. Continue levothyroxine. * TSH normal, 11/16/2018. Contact isolation for MRSA positive nasal smear in the hospital. * Per e-mail communication from infectious disease: whole body chlorhexidine wash daily and Bactroban to nares bid X 3. * Discussed with nursing. Easier to continue gown and gloves precaution when in patient's room. Rhabdomyolysis after prolonged time down prior to hospitalization. Renal function appears has recovered. DISPOSITION: Her goal is to return to independent living in [place], where she lives by herself. She has a local son in [place]. Tentative discharge date set for 12/01/2018. Follow-up: Dr. Jamison Murillo, Cardiology, ; [facility], [phone]. 11/18/18 11:23 Subjective: Feels weak this morning. Thinks her sleep was interrupted multiple times for blood draws and for bladder scanning. She reports bowel movements x2 overnight after having a green smoothie with dinner. She has no cough and does not feel dyspneic. Cough or breathing issues did not interfere with sleep. No fevers or chills. Objective: Vital Signs Temp Pulse Resp BP Pulse Ox 36.7 C 57 L 21 H 143/70 H 95 11/18/18 08:00 11/18/18 08:03 11/18/18 08:00 11/18/18 08:54 11/18/18 08:00 Microbiology 11/13/18 17:55 Urine Culture - Final Urine,Clean Catch Enterococcus Faecalis Gram Negative Guillermo Two [place] Types Laboratory Results 11/18/18 05:16 11/18/18 05:16 11/17/18 11/18/18 11/19/18 05:59 05:59 05:59 Intake Total 850 850 Output Total 671 900 Balance 175 -50 - Time Spent With Patient Time Spent With Patient: Greater than 35 min floor time today, including detailed exam in knee [place] and history gathering, interpretation of test results, and counseling patient and her son. Physical Exam - Physical Exam General Appearance: WD/WN, alert, no apparent distress Respiratory: normal breath sounds, crackles (Left lower lobe), wheezing ( Expiratory, occasional, left-sided), No rhonchi Cardiac/Chest: regular rate, rhythm, No edema, No JVD, No diastolic murmur, No systolic murmur Skin: normal color, warm/dry Neuro/Psych: alert, normal mood/affect, oriented x 3 ICD10 Worksheet Patient Problems: Problems Problem Status Onset CVA (cerebral vascular accident) Acute Weakness Acute
[2018-11-18] MEDS ORDERED: IOPAMIDOL (ISOVUE 370) 100 ML BTL IV ONE (12:53)
[2018-11-18] MEDS: AQUAPHOR OINTMENT 3.5 OZ JAR TP SCH ×2 (14:55→21:02)
[2018-11-18] MEDS: ATORVASTATIN CALCIUM 40 MG TAB PO SCH (21:02)
[2018-11-19] MEDS: LEVOTHYROXINE 25 MCG TAB PO SCH (06:06)
[2018-11-19] MEDS: VALSARTAN 160 MG TAB PO SCH (08:00)
[2018-11-19] MEDS: SENNOSIDES/DOCUSATE SODIUM TAB PO SCH (08:01)
[2018-11-19] MEDS: TAMSULOSIN HCL 0.4 MG CAP PO SCH (08:01)
[2018-11-19] MEDS: CLOPIDOGREL BISULFATE 75 MG TAB PO SCH (08:01)
[2018-11-19] MEDS: CARVEDILOL 6.25 MG TAB PO SCH ×2 (08:01→17:03)
[2018-11-19] MEDS: SODIUM CHLORIDE 1,000 MG TAB PO SCH ×3 (08:01→17:05)
[2018-11-19] MEDS: ASPIRIN EC 81 MG TAB PO SCH (08:01)
[2018-11-19] MEDS: AQUAPHOR OINTMENT 3.5 OZ JAR TP SCH ×2 (08:02→20:26)
[2018-11-19] MEDS ORDERED: SENNOSIDES/DOCUSATE SODIUM TAB PO PRN (10:57)
--- NOTE | 2018-11-19 11:46 | SOAPPROG ---
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 Standby to minimal assist for bed mobility. Minimal assist for transfers. Ambulated less than 50 ft with front wheeled walker and cues. Grooming and hygiene are done seated with standby assist. Dressing upper and lower body require with maximal assist. * Ambulation is improving on exam 11/19/2018. * Continue PT and OT. Cognitive impairment with decreased attention and tangentiality. Was assessed by speech language pathology and no further treatment is indicated. Mild dysphagia. * Seen by speech therapy 11/16/2018. Safe for regular texture and thin liquids. Supervision for meals. 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 Hyponatremia * Improving on labs 11/16/2018, with Na 132. Continue fluid restriction and sodium chloride tablets. * Stable on BMP 11/18/2018 with Na 131. Tachypnea and fatigue, 11/18/2018. * Chest x-ray, CBC and clinical scenario not consistent with pneumonia. Has cardiomegaly but otherwise no signs of heart failure. Ejection fraction was 65 % in the hospital per echocardiogram. * Elevated D-dimer. Chest CT ruled out pulmonary embolus. She has small pleural effusions. * Emphasized importance of incentive spirometry. Anemia, slight worsening on labs 11/16/2018. * Low reticulocytosis, normal B12 on labs of 11/16/2018. * Has reduced transferrin saturation but normal iron and TIBC. * Improving on labs 11/18/2018. Ferritin in normal range. Will not initiate iron replacement. NSTEMI status post angioplasty and stenting of LAD; also distal RCA lesion that was not stentable. * Continue clopidogrel 75 mg daily. Continue aspirin EC 81 mg daily. Continue atorvastatin 80 mg p.o. h.s. Hypertension. Continue carvedilol and valsartan. Pruritus noticed by nursing 11/17/2018. Treated with Aquaphor emollient. LFTs normal; doubt adverse effect of statin. Question of UTI. Was begun on Bactrim for leukocytosis and subsequently changed to cephalexin. She denies, and staff have not documented, symptoms consistent with UTI. Symptoms of urinary retention appear to have improved with tamsulosin. Urine culture has grown Enterococcus faecalis which is likely resistant to cephalexin and Bactrim, and most likely represents asymptomatic bacteriuria. * Discontinue antibiotics 11/16/2018. Observe for signs or symptoms of UTI. * WBC is normal, 11/18/2018. Hypothyroidism. Continue levothyroxine. * TSH normal, 11/16/2018. Contact isolation for MRSA positive nasal smear in the hospital. * Per e-mail communication from infectious disease: whole body chlorhexidine wash daily and Bactroban to nares bid X 3. * Discussed with nursing. Easier to continue gown and gloves precaution when in patient's room. Rhabdomyolysis after prolonged time down prior to hospitalization. Renal function appears has recovered. DISPOSITION: Her goal is to return to independent living in [place], where she lives by herself. She has a local son in [place]. Tentative discharge date set for 12/01/2018. Follow-up: Dr. Jamison Murillo, Cardiology, ; [facility], [phone]. 11/19/18 11:40 Subjective: Feeling better today. Slept well last night. No cough or dyspnea, no fevers or chills, not in pain. Objective: Vital Signs Temp Pulse Resp BP Pulse Ox 36.6 C 60 16 151/87 H 94 11/19/18 08:00 11/19/18 08:01 11/19/18 08:00 11/19/18 08:01 11/19/18 08:00 Laboratory Results 11/18/18 05:16 11/18/18 05:16 11/18/18 11/19/18 11/20/18 05:59 05:59 05:59 Intake Total 850 650 250 Output Total 900 750 Balance -50 -100 250 Physical Exam - Physical Exam General Appearance: WD/WN, alert, no apparent distress Respiratory: normal breath sounds, crackles (Few bibasilar), other (Rapid shallow breath), No rhonchi, No wheezing Cardiac/Chest: regular rate, rhythm, No edema, No diastolic murmur, No systolic murmur Skin: normal color, warm/dry Extremities: No calf tenderness Neuro/Psych: alert, normal mood/affect, oriented x 3, motor weakness (Left upper extremity), other (Observed ambulating with PT using 4 wheeled walker, contact guard assist. PT assists patient to maintain pipe bowls paint trimmer with left hand.) ICD10 Worksheet Patient Problems: Problems Problem Status Onset CVA (cerebral vascular accident) Acute Weakness Acute
[2018-11-19] MEDS: ATORVASTATIN CALCIUM 40 MG TAB PO SCH (20:25)
[2018-11-20] MEDS: LEVOTHYROXINE 25 MCG TAB PO SCH (06:24)
[2018-11-20] MEDS: ASPIRIN EC 81 MG TAB PO SCH (08:37)
[2018-11-20] MEDS: SODIUM CHLORIDE 1,000 MG TAB PO SCH ×3 (08:37→18:12)
[2018-11-20] MEDS: VALSARTAN 160 MG TAB PO SCH (08:37)
[2018-11-20] MEDS: CARVEDILOL 6.25 MG TAB PO SCH ×2 (08:37→18:12)
[2018-11-20] MEDS: CLOPIDOGREL BISULFATE 75 MG TAB PO SCH (08:37)
[2018-11-20] MEDS: TAMSULOSIN HCL 0.4 MG CAP PO SCH (08:37)
[2018-11-20] MEDS: AQUAPHOR OINTMENT 3.5 OZ JAR TP SCH ×2 (08:38→21:30)
[2018-11-20] MEDS ORDERED: CARBOXYMETHYLCELLULOSE 1% 0.4 ML DROPERETTE EACHEYE PRN (09:58)
--- NOTE | 2018-11-20 12:16 | SOAPPROG ---
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 Minimal assist for bed mobility and transfers. Walked 100 feet with 4 wheeled walker and hand over hand assist to maintain left hand on walker; this was improved on 11/20/2018 when walker was set at a lower height. Minimal assist for toilet transfer and for toileting, bath transfer and bathing. Upper body dressing requires setup, lower body dressing requires minimal assist. * Continue PT and OT. Cognitive impairment with decreased attention and tangentiality. * Cognitively at baseline. PAIRING MACHINE OPERATOR advises assistance with bill paying. Mild dysphagia. * Seen by speech therapy 11/16/2018. Safe for regular texture and thin liquids. Supervision for meals. * Continue PAIRING MACHINE OPERATOR. Hyponatremia * Improving on labs 11/16/2018, with Na 132. Continue fluid restriction and sodium chloride tablets. * Stable on BMP 11/18/2018 with Na 131. Tachypnea and fatigue, 11/18/2018. * Chest x-ray, CBC and clinical scenario not consistent with pneumonia. Has cardiomegaly but otherwise no signs of heart failure. Ejection fraction was 65 % in the hospital per echocardiogram. * Elevated D-dimer. Chest CT ruled out pulmonary embolus. She has small pleural effusions. * Emphasized importance of incentive spirometry. She may have restrictive pathology related to kyphosis and scoliosis. Anemia, slight worsening on labs 11/16/2018. * Low reticulocytosis, normal B12 on labs of 11/16/2018. * Has reduced transferrin saturation but normal iron and TIBC. * Improving on labs 11/18/2018. Ferritin in normal range. Will not initiate iron replacement. NSTEMI status post angioplasty and stenting of LAD; also distal RCA lesion that was not stentable. * Continue clopidogrel 75 mg daily. Continue aspirin EC 81 mg daily. Continue atorvastatin 80 mg p.o. h.s. Hypertension. Continue carvedilol and valsartan. Pruritus noticed by nursing 11/17/2018. Treated with Aquaphor emollient. LFTs normal; doubt adverse effect of statin. Question of UTI. Was begun on Bactrim for leukocytosis and subsequently changed to cephalexin. She denies, and staff have not documented, symptoms consistent with UTI. Symptoms of urinary retention appear to have improved with tamsulosin. Urine culture has grown Enterococcus faecalis which is likely resistant to cephalexin and Bactrim, and most likely represents asymptomatic bacteriuria. * Discontinue antibiotics 11/16/2018. Observe for signs or symptoms of UTI. * WBC is normal, 11/18/2018. Hypothyroidism. Continue levothyroxine. * TSH normal, 11/16/2018. Contact isolation for MRSA positive nasal smear in the hospital. * Per e-mail communication from infectious disease: whole body chlorhexidine wash daily and Bactroban to nares bid X 3. * Discussed with nursing. Easier to continue gown and gloves precaution when in patient's room. Rhabdomyolysis after prolonged time down prior to hospitalization. Renal function appears has recovered. DISPOSITION: Attended staffing, 15 min, 11/20/2018. Discussed with case management, dietitian, nursing, PT, OT, PAIRING MACHINE OPERATOR. She has a local son in [place], who has found her a room at [facility], though she continues to hope to return to independent living. Current goal is to achieve assisted living level of function.. Tentative discharge date set for 12/01/2018. Follow-up: Dr. Jamison Murillo, Cardiology, ; [facility], [phone]. 11/20/18 12:11 Subjective: Reports left chest tenderness if she pushes on it. It does not hurt otherwise and has not interfered with sleep. She does not feel that she is able to move the gauge very much with incentive spirometry. She has no fevers or chills, no cough or dyspnea. Objective: Vital Signs Temp Pulse Resp BP Pulse Ox 36.9 C 64 15 121/57 H 96 11/20/18 08:00 11/20/18 08:37 11/20/18 08:00 11/20/18 08:37 11/20/18 08:00 Laboratory Results 11/18/18 05:16 11/18/18 05:16 11/19/18 11/20/18 11/21/18 05:59 05:59 05:59 Intake Total 650 650 120 Output Total 750 750 100 Balance -100 -100 20 - Time Spent With Patient Time Spent With Patient: Greater than 35 min floor time today, including more than 50% of time in coordination of care during staffing, and counseling patient. Physical Exam - Physical Exam General Appearance: WD/WN, alert, no apparent distress Respiratory: normal breath sounds, crackles (Few bibasilar), No rhonchi, No wheezing Cardiac/Chest: regular rate, rhythm, No edema, No JVD, No diastolic murmur, No systolic murmur Skin: normal color, warm/dry Neuro/Psych: alert, normal mood/affect, oriented x 3, motor weakness (Left upper extremity) ICD10 Worksheet Patient Problems: Problems Problem Status Onset CVA (cerebral vascular accident) Acute Weakness Acute
[2018-11-20] MEDS: ATORVASTATIN CALCIUM 40 MG TAB PO SCH (21:54)
[2018-11-20] MEDS: ACETAMINOPHEN 325 MG TAB PO PRN (22:17)
[2018-11-21] MEDS: LEVOTHYROXINE 25 MCG TAB PO SCH (06:18)
[2018-11-21] MEDS: CARVEDILOL 6.25 MG TAB PO SCH ×2 (08:41→17:04)
[2018-11-21] MEDS: VALSARTAN 160 MG TAB PO SCH (08:42)
[2018-11-21] MEDS: CLOPIDOGREL BISULFATE 75 MG TAB PO SCH (08:42)
[2018-11-21] MEDS: TAMSULOSIN HCL 0.4 MG CAP PO SCH (08:42)
[2018-11-21] MEDS: ASPIRIN EC 81 MG TAB PO SCH (08:42)
[2018-11-21] MEDS: SODIUM CHLORIDE 1,000 MG TAB PO SCH ×3 (08:42→17:06)
[2018-11-21] MEDS: AQUAPHOR OINTMENT 3.5 OZ JAR TP SCH (08:43)
--- NOTE | 2018-11-21 11:49 | HOSPPROG ---
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 Minimal assist for bed mobility and transfers. Walked 100 feet with 4 wheeled walker and hand over hand assist to maintain left hand on walker; this was improved on 11/20/2018 when walker was set at a lower height. Minimal assist for toilet transfer and for toileting, bath transfer and bathing. Upper body dressing requires setup, lower body dressing requires minimal assist. * Continue PT and OT. Cognitive impairment with decreased attention and tangentiality. * Cognitively at baseline. MEAT SUPERVISOR advises assistance with bill paying. Mild dysphagia. * Seen by speech therapy 11/16/2018. Safe for regular texture and thin liquids. Supervision for meals. * Continue MEAT SUPERVISOR. Hyponatremia * Improving on labs 11/16/2018, with Na 132. Continue fluid restriction and sodium chloride tablets. * Stable on BMP 11/18/2018 with Na 131. * WILL LIBERALIZE FLUID RESTRICTION TO 1500 CC Tachypnea and fatigue, 11/18/2018. * Chest x-ray, CBC and clinical scenario not consistent with pneumonia. Has cardiomegaly but otherwise no signs of heart failure. Ejection fraction was 65 % in the hospital per echocardiogram. * Elevated D-dimer. Chest CT ruled out pulmonary embolus. She has small pleural effusions. * Emphasized importance of incentive spirometry. She may have restrictive pathology related to kyphosis and scoliosis. * REPEAT CXR 11/19 FOR FEVER WAS STABLE Anemia, slight worsening on labs 11/16/2018. * Low reticulocytosis, normal B12 on labs of 11/16/2018. * Has reduced transferrin saturation but normal iron and TIBC. * Improving on labs 11/18/2018. Ferritin in normal range. Will not initiate iron replacement. NSTEMI status post angioplasty and stenting of LAD; also distal RCA lesion that was not stentable. * Continue clopidogrel 75 mg daily. Continue aspirin EC 81 mg daily. Continue atorvastatin 80 mg p.o. h.s. Hypertension. Continue carvedilol and valsartan. Pruritus noticed by nursing 11/17/2018. Treated with Aquaphor emollient. LFTs normal; doubt adverse effect of statin. Question of UTI. Was begun on Bactrim for leukocytosis and subsequently changed to cephalexin. She denies, and staff have not documented, symptoms consistent with UTI. Symptoms of urinary retention appear to have improved with tamsulosin. Urine culture has grown Enterococcus faecalis which is likely resistant to cephalexin and Bactrim, and most likely represents asymptomatic bacteriuria. * Discontinue antibiotics 11/16/2018. Observe for signs or symptoms of UTI. * WBC is normal, 11/18/2018. * NEW FEVER 11/20 - UA WITH SOME SUGGESTION OF UTI, LAST CULTURE WAS AMENDED TO INCREASE COLONY COUNT OF ENTEROCOCCUS TO 100K - WILL TREAT WITH AMOXICILLIN Hypothyroidism. Continue levothyroxine. * TSH normal, 11/16/2018. Contact isolation for MRSA positive nasal smear in the hospital. * Per e-mail communication from infectious disease: whole body chlorhexidine wash daily and Bactroban to nares bid X 3. * Discussed with nursing. Easier to continue gown and gloves precaution when in patient's room. Rhabdomyolysis after prolonged time down prior to hospitalization. Renal function appears has recovered. Subjective: feels weak. fever last night. not particulary dyspneic but slight low o2 sat. no dysuria Objective: Vital Signs Temp Pulse Resp BP Pulse Ox 36.7 C 70 17 165/67 H 93 11/21/18 05:49 11/21/18 08:41 11/21/18 05:49 11/21/18 08:42 11/21/18 11:39 Laboratory Results 11/18/18 05:16 11/18/18 05:16 11/20/18 11/21/18 11/22/18 05:59 05:59 05:59 Intake Total 650 1130 120 Output Total 750 450 Balance -100 680 120 - Physical Exam Constitutional: no apparent distress, appears nourished, not in pain Eyes: anicteric sclera, EOMI Ears, Nose, Mouth, Throat: moist mucous membranes Cardiovascular: regular rate and rhythym, No edema Respiratory: no respiratory distress, clear to auscultation, reduced air movement Gastrointestinal: normoactive bowel sounds, soft, non-tender abdomen, no palpable masses Skin: warm Neurologic: AAOx3 Psychiatric: interacting appropriately, not anxious, not encephalopathic, thought process linear ICD10 Worksheet Patient Problems: Problems Problem Status Onset CVA (cerebral vascular accident) Acute Weakness Acute
[2018-11-21] MEDS: ACETAMINOPHEN 325 MG TAB PO PRN (17:09)
[2018-11-21] MEDS ORDERED: AMPICILLIN/SULBACTAM 3 GM in NS 100 ML IV SCH (18:00)
[2018-11-21 18:40] LABS: PLATELET COUNT 251 10^3/uL (150-400)
[2018-11-21 18:54] VITALS: BP 119/53
--- NOTE | 2018-11-22 18:57 | GDS ---
[f rep st] DISCHARGE SUMMARY DISCHARGE DIAGNOSES: 1. 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 2. Fever and delirium. 3. Probable urinary tract infection. 4. Mild hypoxic respiratory failure. 5. Hyponatremia. 6. Cognitive impairment. 7. Anemia. 8. Recent [id number] myocardial infarction, status post angioplasty of the left anterior desce nding. 9. Hypertension. HISTORY: This is an 83-year-old female who was in inpatient rehab, undergoing rehabilitation for her CVA. HOSPITAL COURSE: 1. Fever, UTI. She did have some fever several days ago and UA suggested urinary tract infection an d urine culture did grow out enterococcus, which was later amended to be over 100,000. When she spik ed a fever, she was started on amoxicillin due to probable enterococcus urinary tract infection. Lat er that day, she spiked a fever of 103 with associated delirium and some mild hypoxia and thus was tr ansferred to the hospital. 2. Recent CVA, undergoing therapy. 3. Mild dysphagia, undergoing therapy. 4. 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 Continue with fluid restriction and salt tablets. 5. Non-STEMI. Patient was continued on cardiac medications. 6. Hypertension. She was continued on her medications. DISPOSITION: Patient is being discharged to inpatient hospitalization due to high fever and delirium . /[id number]/MODL
--- NOTE | 2018-11-23 16:01 | PDOREHIP ---
Admission [facility] - Admission - 3 Day Assessment Period Admission Date/Day 1: 11/11/18 Day 2: 11/12/18 Day 3: 11/13/18 - Active Diagnoses Comorbidities and Co-existing Conditions at Admission: 29905. PVD or PAD Discharge [facility] - Discharge - 3 Day Assessment Period 2 Days Prior to Anticipated Discharge Date: 11/29/18 1 Day Prior to Anticipated Discharge Date: 11/30/18 Anticipated Discharge Date: 12/01/18 - Discharge Skin Conditions Unhealed Pressure Ulcer (1 or more/Stage 1 or >)-Discharge: 0. No # Stage 1 Pressure Ulcers-Discharge: 0 # Stage 2 Pressure Ulcers-Discharge: 0 # of These Stage 2 Pressure Ulcers Present on Admission: 0 # Stage 3 Pressure Ulcers-Discharge: 0 # of These Stage 3 Pressure Ulcers Present on Admission: 0 # Stage 4 Pressure Ulcers-Discharge: 0 # of These Stage 4 Pressure Ulcers Present on Admission: 0 # Unstageable Pressure Ulcers (Non-remove Dress)-Discharge: 0 # These Unstageable Pressure Ulcers (NRD)-Present on Admit: 0 # Unstageable Pressure Ulcers (Slough/Eschar)-Discharge: 0 # These Unstageable Pressure Ulcers(Slough) Present on Admit: 0 # Unstageable Pressure Ulcers (Deep Tissue Injury)-Discharge: 0 # These Unstageable Pressure Ulcers (DTI) Present on Admit: 0
== END 2018-11-21 19:30 | disposition still patient (30) | DRG 56 ==
LOC: F3E 11-11 12:12
PROVIDERS: ADMIT Internal Medicine Hospice and Palliative Medicine; ATTEND Internal Medicine Hospice and Palliative Medicine
PROC: F0636ZZ Communicative/Cognitive Integration Skills Treatment of Neurological System - Whole Body (ICD-10-PCS; principal; 2018-11-11)
PROC: F07M3ZZ Motor Function Treatment of Musculoskeletal System - Whole Body (ICD-10-PCS; principal; 2018-11-11)
PROC: F08Z7ZZ Vocational Activities and Functional Community or Work Reintegration Skills Treatment (ICD-10-PCS; principal; 2018-11-11)
DX: I69.354 Hemiplegia and hemiparesis following cerebral infarction affecting left non-dominant side (principal); I69.391 Dysphagia following cerebral infarction; J96.91 Respiratory failure, unspecified with hypoxia; I23.4 Rupture of chordae tendineae as current complication following acute myocardial infarction; N39.0 Urinary tract infection, site not specified; E87.1 Hypo-osmolality and hyponatremia; I25.10 Atherosclerotic heart disease of native coronary artery without angina pectoris; M25.512 Pain in left shoulder; I10 Essential (primary) hypertension; E03.9 Hypothyroidism, unspecified; Z95.5 Presence of coronary angioplasty implant and graft; Z91.81 History of falling; R41.0 Disorientation, unspecified; G31.84 Mild cognitive impairment of uncertain or unknown etiology; D64.9 Anemia, unspecified
CPT/HCPCS: 82607-90; 92507-GN; 92523-GN; 92526-GN; 92610-GN; 97110-GO; 97110-GP; 97112-GO; 97112-GP; 97116-GP; 97162-GP; 97166-GO; 97530-GO; 97530-GP; 97535-GO; G0515-GO; J0295; Q9967

== ENCOUNTER 2018-11-21 18:28 | Inpatient (IN) | payer OTHER ==
[2018-11-21] MEDS ORDERED: ONDANSETRON DISINTEGRATING 4 MG TAB PO PRN (20:08)
[2018-11-21] MEDS ORDERED: ONDANSETRON 4 MG/2 ML VIAL IVP PRN (20:08)
[2018-11-21] MEDS ORDERED: NS 1,000 ML IV SCH (20:15)
[2018-11-21] MEDS ORDERED: NS 500 ML IV ONE (20:26)
--- NOTE | 2018-11-21 20:30 | PDGENHP ---
History and Physical - Chief Complaint fever - History of Present Illness 83 yo female who was admitted to our inpt rehab unit from [facility] on 11/11/2018 after suffering a CVA with residual left sided weakness and also NSTEMI with LAD stent placed on 11/06/2018. See the rehab physician's H&P for further details. Over the past 2 days in rehab, she became weaker. Today, she spiked a fever and became more somnolent with altered mental status. A urine culture on 11/13/2018 grew 30-40 CFU's of enterococcus. She was transferred to [facility] inpatient status for further evaluation and management of fever secondary to presumed urinary source. During my evaluation, the pt follows basic commands, but is unable to provide any history or endorse any specific symptoms. She cannot answer most of my questions. She received IV Unasyn this evening to cover for enterococcal UTI. Blood cultures and repeat UA with culture was sent. History Information - Allergies/Home Medication List Allergies/Adverse Reactions: No Allergies [NKA] Allergy (Verified 11/11/18 14:57) Home Medications: Aspirin EC [Aspirin EC 81 mg (*)] 81 mg PO DAILY 11/11/18 [Last Taken 11/21/18] Atorvastatin Calcium [Lipitor 40 mg (*)] 80 mg PO HS 11/11/18 [Last Taken ] Carvedilol [Coreg] 12.5 mg PO BIDMEAL 11/11/18 [Last Taken 11/21/18 17:00] Clopidogrel Bisulfate [Plavix (*)] 75 mg PO DAILY 11/11/18 [Last Taken 11/21/18] Diclofenac Sodium 1% [Voltaren Gel (*)] 2 g TP QID PRN 11/11/18 [Last Taken 07/22] Docusate Sodium [Colace 100 MG (*)] 100 mg PO DAILY 11/11/18 [Last Taken Unknown ] Levothyroxine [Synthroid 25 mcg (*)] 25 mcg PO DAILY06 11/11/18 [Last Taken ] Valsartan 320 mg PO DAILY 11/11/18 [Last Taken 11/21/18] I have personally reviewed and updated: family history, medical history, social history, surgical history - Past Medical History coronary artery disease, CVA, hypertension Additional medical history: Hypothyroidism. Anemia - Surgical History Reports: coronary stent Additional surgical history: LAD stent 11/06/2018, RCA was completely occluded - Family History Positive for: non-pertinent - Social History Smoking Status: Never smoked Alcohol Use: None Drug Use: None Additional social history: Pt had been living at [facility], currently in inpt rehab Review of Systems Review of Systems: ROS: 10pt was reviewed & negative except for what was stated in HPI & below Physical Exam Physical Exam: Temp Pulse Resp BP Pulse Ox 36.6 C 57 L 14 114/52 L 94 11/21/18 20:23 11/21/18 20:23 11/21/18 20:23 11/21/18 20:23 11/21/18 20:23 Constitutional: no apparent distress Eyes: PERRL Ears, Nose, Mouth, Throat: dry mucous membranes Cardiovascular: regular rate and rhythym, no murmur, rub, or gallop Respiratory: no respiratory distress, reduced air movement Gastrointestinal: normoactive bowel sounds, soft, non-tender abdomen Skin: warm Musculoskeletal: generalized weakness Psychiatric: encephalopathic Lab Data & Imaging Review Visualized and Interpreted Chest x-ray results: Yes Chest X-Ray results: no infiltrate Assessment & Plan Assessment: Fever - suspect 2/2 UTI, noting recent UCx with Enterococcus sensitive to Ampicillin. She does not meet sepsis criteria. CXR last night reviewed, no obvious infiltrate. Also consider RUQ source with elevated LFT's. -cont Unasyn for enterococcal coverage -BCx's and UCx pending (these can be found under 11/11 rehab encounter) -check RUQ u/s Elevated LFT's - has been on high dose statin, no RUQ pain on exam. She had normal LFT's 3 days ago. -RUQ u/s as above -trend LFT's -hold statin -hold voltaren as this can be associated with elevated LFT's Acute metabolic encephalopathy - likely 2/2 infection. She moves all extremities and follows commands. -repeat CT head for new neurodeficits CAD with recent LAD stent 11/06/2018 - chest pain free -cont ASA, Plavix -holding coreg with low BP and acute infection -holding statin as above CVA with left sided weakness - no MRI was done due to some concern for metal -ASA, Plavix as above -statin held -resume PT/OT when able Hypertension - hold valsartan and coreg as BP's trending down ~110 currently Hypothyroidism - cont LT4 DNR Dispo - admit to inpt, anticipate >48 hrs hospitalization for management of presumed UTI and encephalopathy
[2018-11-21] MEDS: ALBUTEROL 3 ML DEYVIAL IH PRN (22:00)
[2018-11-21] MEDS ORDERED: FUROSEMIDE 20 MG/2 ML VIAL ONE (22:08)
[2018-11-21] MEDS ORDERED: FUROSEMIDE 20 MG/2 ML VIAL IVP ONE (22:18)
[2018-11-22] MEDS: IBUPROFEN 200 MG TAB PO PRN ×2 (00:22→20:00)
[2018-11-22] MEDS: AMPICILLIN/SULBACTAM 3 GM in NS 100 ML IV SCH ×5 (00:26→23:30)
--- NOTE | 2018-11-22 01:42 | HOSPPROG ---
Hospitalist Progress Note Assessment/Plan: XC: Stat team called for patient due to respiratory distress. Patient had been evaluated for fever earlier in the day and given 500 mL bolus. She developed respiratory distress shortly after this. She has clearly audible wheezing on my exam. She is complaining of SOB, denies CP. ECG demonstrates diffuse TWIs but I do not have a prior for comparison. CXR is unchanged from prior. I ordered albuterol neb and Lasix 20 mg IV x1 with good results. The patient's work of breathing improved and her O2 requirements have returned to only 0.5 L. She has continued to be febrile but her infectious work-up is reassuring. CBC, lactate, and troponin are all normal. She was started on Unasyn earlier for possible UTI , I will continue this. Objective: Vital Signs Temp Pulse Resp BP Pulse Ox 38.1 C 63 23 H 126/56 H 97 11/22/18 01:10 11/22/18 01:10 11/22/18 01:10 11/22/18 01:10 11/22/18 01:10 Laboratory Results 11/21/18 22:13 11/21/18 22:13 ICD10 Worksheet Patient Problems: Problems Problem Status Onset CVA (cerebral vascular accident) Acute Weakness Acute
[2018-11-22 05:22] LABS: PLATELET COUNT 250 10^3/uL (150-400)
[2018-11-22] MEDS: LEVOTHYROXINE 25 MCG TAB PO SCH (05:43)
[2018-11-22] MEDS: ALBUTEROL 3 ML DEYVIAL IH PRN (06:17)
[2018-11-22] MEDS: CLOPIDOGREL BISULFATE 75 MG TAB PO SCH (08:44)
[2018-11-22] MEDS: DOCUSATE SODIUM 100 MG CAP PO SCH (08:44)
[2018-11-22] MEDS: ASPIRIN EC 81 MG TAB PO SCH (08:44)
[2018-11-22] MEDS: ENOXAPARIN 40 MG/0.4 ML SYR SC SCH (08:45)
[2018-11-22] MEDS ORDERED: VALSARTAN 160 MG TAB PO SCH (09:00)
--- NOTE | 2018-11-22 13:09 | CPEKG ---
Test Reason : OPEN Blood Pressure : / mmHG Vent. Rate : 077 BPM Atrial Rate : 079 BPM P-R Int : 053 ms QRS Dur : 132 ms QT Int : 468 ms P-R-T Axes : 066 012 -46 degrees QTc Int : 530 ms Sinus rhythm Ventricular premature complex ct Borderline ST elevation, lateral leads Confirmed by Rose Dean ([id number]) on 11/22/2018 1:08:54 PM Referred By: Radha Schmid Confirmed By:Rose Dean
--- NOTE | 2018-11-22 14:26 | PDMN ---
Medical Necessity Medical necessity: Pt meets inpt criteria per MD order and MCG M-300, Urinary Tract Infection, A-2 days, presenting w/AMS, unable to answer most questions, and fever, from inpt rehab where she has been since hospitalization for CVA, urine cx on 11/13 grew enterococcus, admitted now w/fever- likely from UTI, acute metabolic encephalopathy, and elevated LFTs. Stat team called during nt for episode of resp distress. IVF, IV ABX's, cultures pending, PMHx includes recent CVA w/residual L sided weakness, HTN, CAD w/recent LAD stent. Anticiapte> 2MN for further eval/management of above.
--- NOTE | 2018-11-22 15:26 | HOSPPROG ---
Hospitalist Progress Note Assessment/Plan: DIAGNOSES: * Fever, abrupt onset evening of November 21 while in rehab unit, uncertain etiology absence of white blood cell count elevation * Acute hepatitis, transaminases 300+, abrupt onset November 21 uncertain etiology but presumably related to the fever illness * Dyspnea of uncertain etiology without hypoxia * Hypokalemia, possibly from the dose of Lasix she got yesterday * Mild hyponatremia stable * Mild normocytic anemia hemoglobin 11-12 * Recent acute stroke with left-sided weakness * Coronary artery disease with stent recent LAD stent placed at [facility] November 06 PLANS: * Continue empiric antibiotics while waiting for culture results * If dyspnea persists will consider CT scan of chest and pulmonary function testing * Repeat hepatic transaminases * I have ordered some viral serologies for various hepatic viruses * Will give some potassium replacement recheck potassium in the morning SUBJECTIVE: The patient today mainly complains of feeling extremely weak. She does feel somewhat dyspneic without cough or chest discomfort No symptoms of fever today Appetite is poor OBJECTIVE Vitals reviewed: Temperature was 39.9 degrees at midnight no recurrent fever since then stable vital signs otherwise Exam: alert oriented, looks very fatigued and weak, left-sided weakness unchanged skin warm dry color ok resps appear mildly labored lungs very diminished but otherwise clear BSs limbs warm, no edema heart regular abd soft nondistended nontender, bowel sounds present iv site ok Imaging: I reviewed images of her abdominal ultrasound as well as radiology's report, there are no hepatic or biliary abnormalities of concern and nothing else to remark on I reviewed images from yesterday's chest x-ray which shows no infiltrates or other explanation for shortness of breath or fever Lab data: White count remains normal, hemoglobin stable at her baseline range Some improvement in transaminases though her AST remains at 258, bilirubin up a bit to 1.5 alk-phos now down to 376 Sodium 130 potassium 3.0 Objective: Vital Signs Temp Pulse Resp BP Pulse Ox 36.0 C 55 L 20 114/53 L 97 11/22/18 12:24 11/22/18 12:24 11/22/18 12:24 11/22/18 12:24 11/22/18 12:24 Microbiology 11/21/18 23:11 Respiratory Panel (PCR) - Final Nasal, Sinus - Swab No Organism Detected By Pcr Laboratory Results 11/22/18 04:51 11/22/18 04:51 11/21/18 11/22/18 11/23/18 06:59 06:59 06:59 Intake Total 0 Output Total 250 Balance -250 - Time Spent With Patient Time Spent with Patient: greater than 35 minutes Time Spent with Patient: Greater than 35 minutes spent on this patients care, greater than 50% of time spent counseling, educating, and coordinating care regarding the above mentioned plan. ICD10 Worksheet Patient Problems: Problems Problem Status Onset CVA (cerebral vascular accident) Acute Weakness Acute
--- NOTE | 2018-11-22 16:11 | ASMTCMCOM ---
CM Note CM Note Notes: Pt admitted from [facility] Inpt Rehab with fever, AMS and UTI. Pt lives in [place] and is . Son Ascencion Bolaños is the [facility] and is to bring in a copy of it. PT and OT recommending return to Inpt Rehab. Son reports family plans to move mother to [facility] and they will communicate delay in plans to [facility]. CM to follow. D/C Plan: [facility] Inpt Rehab Date Signed: 11/22/2018 04:11 PM Electronically Signed By:Jesusita Ramos
[2018-11-22] MEDS: DIPHENHYDRAMINE CREAM TP PRN (23:33)
[2018-11-23 04:02] LABS: HEPATITIS A ANTIBODY IGM (BCH) NEGATIVE (NEGATIVE); HEPATITIS B CORE AB IGM NEGATIVE (NEGATIVE); HEPATITIS B SURFACE ANTIGEN NEGATIVE (NEGATIVE); HEPATITIS C ANTIBODY TOTAL NEGATIVE (NEGATIVE)
[2018-11-23] MEDS: TEARS/DEXTRAN 70/HYPROMELLOSE 15 ML OPHT.BTL EACHEYE PRN ×2 (04:09→12:29)
[2018-11-23 05:03] LABS: PLATELET COUNT 227 10^3/uL (150-400)
[2018-11-23] MEDS: LEVOTHYROXINE 25 MCG TAB PO SCH (05:18)
[2018-11-23] MEDS: AMPICILLIN/SULBACTAM 3 GM in NS 100 ML IV SCH ×3 (05:18→17:27)
[2018-11-23] MEDS: DOCUSATE SODIUM 100 MG CAP PO SCH (09:21)
[2018-11-23] MEDS: ENOXAPARIN 40 MG/0.4 ML SYR SC SCH (09:21)
[2018-11-23] MEDS: ASPIRIN EC 81 MG TAB PO SCH (09:21)
[2018-11-23] MEDS: CLOPIDOGREL BISULFATE 75 MG TAB PO SCH (09:21)
[2018-11-23] MEDS: IBUPROFEN 200 MG TAB PO PRN ×2 (11:33→21:05)
[2018-11-23] MEDS: DIPHENHYDRAMINE CREAM TP PRN (12:29)
--- NOTE | 2018-11-23 13:30 | WOCRNPDOC ---
WOCRN Advanced Assessment Note - Skin Integrity Problem, Advanced Assess Coccyx Dressing Type: Mepilex Border Dressing Description: Clean/Dry, Intact Pressure Injury Present on Admit: Yes Skin Integrity Problem Comment: Patient recently seen for this coccyx wound which continues to be closed. Will recommend continue to protect area with Mepilex Border sacral dressing. Bilateral elbows also visualized with no skin issue or redness noted. Wound care will sign off.
--- NOTE | 2018-11-23 15:05 | ASMTCMCOM ---
CM Note CM Note Notes: CM received call today from Angy Elaine at [facility] , who planned to come to [facility] and evaluate pt for [place]. She will delay that eval until pt returns to [facility] and requested CM notify her when that happens. Therapies still recommending [facility] for pt when she discharges and [facility] confirmed that they are saving her bed and it will be available tomorrow 11/24 at 13:00. CM to follow. D/C Plan: [facility] Date Signed: 11/23/2018 02:58 PM Electronically Signed By:Jesusita Ramos
[2018-11-23] MEDS ORDERED: FUROSEMIDE 20 MG/2 ML VIAL IVP ONE (16:41)
[2018-11-23] MEDS: ALBUTEROL 3 ML DEYVIAL IH PRN (16:56)
[2018-11-23 17:04] LABS: CREATINE KINASE 152 IU/L (0-156)
[2018-11-23] MEDS ORDERED: PROTOCOL POTASSIUM 1 DOSE MISC PRN (17:37)
[2018-11-23] MEDS ORDERED: PROTOCOL MAGNESIUM 1 DOSE IV PRN (17:37)
--- NOTE | 2018-11-23 17:49 | HOSPPROG ---
Hospitalist Progress Note Assessment/Plan: This patient initially presented to [facility] with stroke sxs (unable to have MRI), and while there had signs of CAD/ischemia so a stent was placed in LAD "asymptomatic NSTEMI" per records. She was sent here to Rehab Unit on 11/11 but on 11/20 had T 39.9, low BP, and elevation of liver enzymes. She was transfered to inpt care on hospitalist service, Abx started with Unasyn, IV fluids given. That night she had some dyspnea and hypoxemia, and was given a dose of lasix. On rehab there had been a CT angio chest for tachypnea and malaise on 11/18 that showed only small L pleural effusions. Since admision to hospitalists, no recurrence of fever, but today is very sob with labored resps, and today has some pulm edema on CXR. DIAGNOSES: * Fever, abrupt onset evening of November 21 while in rehab unit, uncertain etiology, absence of white blood cell count elevation -No UTI sxs, but mild pyuria: Cx is growing enterococcus (low count) and 3 gram negatives all > 100,000 (she had been diagnosed w and treated for cath associated UTI at [facility]) -Abd US negative -? relation to liver enzymes * Acute hepatitis, transaminases 300+, abrupt onset November 21 uncertain etiology but presumably related to the fever illness?? -only med on list was lipitor 80 which is stopped -ALT AST improving but Alk phos still up a bit, bili not bad * Pulmonary Edema is likely cause of current Dyspnea and tachypnea -has been getting IV fluids and may just be she can't tolerate that -EKG unchanged today and trop nl; however with recent cardiac events at [facility] will repeat echo -unremarkable CT chest 11/18 -attempted PFT but she is unable to follow instructions, uninterpretable result ( I wsa present and observed); a dose of albuterol given to see if helpful * Hypokalemia, likely from 11/21 lasix dose and poor intake * Mild hyponatremia stable * Deconditioning, severe * Mild normocytic anemia hemoglobin 11-12 * Recent acute stroke with left-sided weakness * Coronary artery disease with LAD stent placed at [facility] November 06 (NSTEMI then) PLANS: * Continue empiric antibiotics while waiting for culture results ( I have asked lab to ID the 3 gram negatives in urine but question the significance of urine findings) * Lasix 20 mg IV now, may need repeat * repeat CXR in am * Echocardiogram to be sure no new dysfunction or pericardial effusion * follow hepatic transaminases; stay off lipitor at moment but unless high suspicion for that being cause of fever/enzymes develops should try to restart w her heart issues * I have ordered some viral serologies for various hepatic viruses, mostly pending * electrolyte protocol * 2 gm Na diet * continue PT OT I spent approximately 35 min at the bedside assessing the patient during 2 visits and observing her attempted PFTs looking at EKGs etc. Additionally I spent greater than 30 min with the son and [id number] at the bedside today reviewing the patient's clinical condition and changes, all of the laboratory tests another study results, microbiology results, differential diagnosis, treatment plans and further diagnostic studies. Total time at bedside today nearly 70 min SUBJECTIVE: The patient today mainly complains of feeling extremely weak. She does feel somewhat dyspneic without cough or chest discomfort No symptoms of fever today Appetite is poor OBJECTIVE Vitals reviewed: no recurret fever, stable BP and pulse Resps are rapid and labored, as high as 30s she is NOT however hypoxemic with 99% sat on room air (did have some mild hypoxemia last night) Exam: alert oriented, looks very fatigued and weak, left-sided weakness unchanged skin warm dry color ok resps appear mildly labored lungs very diminished but otherwise clear BSs limbs warm, no edema heart regular abd soft nondistended nontender, bowel sounds present iv site ok Imaging: I reviewed images of her abdominal ultrasound as well as radiology's report, there are no hepatic or biliary abnormalities of concern and nothing else to remark on I reviewed images from yesterday's chest x-ray which shows no infiltrates or other explanation for shortness of breath or fever Lab data: some improvement in ALT, AST but Alk Phos remains up K still low renal fxn stable EKG: I ordered 12 lead EKG I have reviewed the tracing which shows sinus rhythm with diffuse T-wave inversions which is unchanged from her previous EKG and is expected to be due to her recent ID or possibly chronic. No definite acute ischemic changes Objective: Vital Signs Temp Pulse Resp BP Pulse Ox 37.3 C 64 36 H 125/60 H 95 11/23/18 16:00 11/23/18 16:00 11/23/18 16:00 11/23/18 16:00 11/23/18 16:00 Laboratory Results 11/23/18 04:50 11/23/18 04:50 11/22/18 11/23/18 11/24/18 06:59 06:59 06:59 Intake Total 0 Output Total 250 365 Balance -250 -365 ICD10 Worksheet Patient Problems: Problems Problem Status Onset CVA (cerebral vascular accident) Acute Weakness Acute
[2018-11-23] MEDS ORDERED: POTASSIUM CL 10 MEQ TAB PO ONE (20:46)
[2018-11-24] MEDS: AMPICILLIN/SULBACTAM 3 GM in NS 100 ML IV SCH ×5 (00:15→23:59)
[2018-11-24] MEDS: LEVOTHYROXINE 25 MCG TAB PO SCH (05:11)
[2018-11-24] MEDS ORDERED: POTASSIUM CL 10 MEQ TAB PO ONE ×2 (08:06→20:18)
--- NOTE | 2018-11-24 08:33 | CPEKG ---
Test Reason : OPEN Blood Pressure : / mmHG Vent. Rate : 064 BPM Atrial Rate : 064 BPM P-R Int : 163 ms QRS Dur : 095 ms QT Int : 489 ms P-R-T Axes : 059 011 262 degrees QTc Int : 505 ms Sinus rhythm Abnormal T, consider ischemia, diffuse leads Prolonged QT interval Confirmed by Tee Saldivar ([id number]) on 11/24/2018 8:32:56 AM Referred By: Radha Schmid Confirmed By:Tee Saldivar
[2018-11-24] MEDS: ENOXAPARIN 40 MG/0.4 ML SYR SC SCH (08:41)
[2018-11-24] MEDS: ASPIRIN EC 81 MG TAB PO SCH (08:41)
[2018-11-24] MEDS: CLOPIDOGREL BISULFATE 75 MG TAB PO SCH (08:42)
[2018-11-24] MEDS: DOCUSATE SODIUM 100 MG CAP PO SCH (08:42)
--- NOTE | 2018-11-24 12:31 | HOSPPROG ---
Hospitalist Progress Note Assessment/Plan: This patient initially presented to [facility] with stroke sxs (unable to have MRI), and while there had signs of CAD/ischemia so a stent was placed in LAD "asymptomatic NSTEMI" per records. She was sent here to Rehab Unit on 11/11 but on 11/20 had T 39.9, low BP, and elevation of liver enzymes. She was transferred to in care on hospitalist service, Abx started with Unasyn, IV fluids given. That night she had some dyspnea and hypoxemia, and was given a dose of lasix. First encounter, chart reviewed. *fever -had one episode last night -reviewed her blood cx which showed no growth -ua shows pyuria -abd ultrasound negative -on Unasyn -evaluated her chest x ray from yesterday which showed some chf, but no infectious etiology *acute hepatitis -possibly due to the above -multiple labs pending -valsartan can affect this -will recheck lft 's in a.m. *tachypnea -not requiring O2 but use of accessory muscles w talking -reviewed imaging from earlier this month, CTA shows no PE (this was done on )-showed small left pleural effusion -patient has some anxiety *htn, uncontrolled -will resume her Valsartan (lower dose) and Coreg *Pulmonary edema -was given a dose of Lasix yesterday -CT of chest stable -echo done this morning; will f/u with this -will check a BNP now *hypokalemia -stable *deconditioning -PT and OT *hyponatremia -recheck in a.m. *normocytic anemia *recent stroke w residual left sided weakness -PT and OT *CAD w LAD stent placed a [facility] on November 06 (NSTEMI) -plavix *plan: look at echo, get a BNP, repeat labs in a.m., consider ID consult -no clear source of infection and is on abx Subjective: Curt said she is feeling better overall. Objective: Vital Signs Temp Pulse Resp BP Pulse Ox 37.1 C 68 16 183/83 H 93 11/24/18 11:06 11/24/18 11:06 11/24/18 11:06 11/24/18 11:06 11/24/18 11:06 Laboratory Results 11/23/18 04:50 11/24/18 05:00 11/23/18 11/24/18 11/25/18 05:59 05:59 05:59 Intake Total 250 250 Output Total 365 850 Balance -365 -600 250 - Physical Exam Constitutional: chronically ill appearing Eyes: PERRL Ears, Nose, Mouth, Throat: hearing normal Cardiovascular: regular rate and rhythym Respiratory: reduced air movement (bibasilar, > on left), No no respiratory distress (increase resp rate w talking) Gastrointestinal: normoactive bowel sounds Skin: warm Musculoskeletal: generalized weakness (left arm in a flexed position) Neurologic: AAOx3 Psychiatric: interacting appropriately ICD10 Worksheet Patient Problems: Problems Problem Status Onset CVA (cerebral vascular accident) Acute Weakness Acute
[2018-11-24] MEDS ORDERED: CARVEDILOL 6.25 MG TAB PO SCH (12:45)
[2018-11-24] MEDS: VALSARTAN 160 MG TAB PO SCH (14:36)
--- NOTE | 2018-11-24 14:54 | ECHO ---
[email or web address] [address] Main: [phone] Echocardiography Examination Transthoracic Name: SIERRA LEÓN MR#: [id number] Study Date: 11/24/2018 Study Time: 09:21 AM Date of : 1935 Age: 83 year(s) Height: 157.5 cm (62 in.) Weight: 63.5 kg (140 lb.) BSA: 1.64 m2 Gender: Female Examination: Echo Contrast: Image Quality: Rhythm: Heart Rate: 64 bpm BP: 192 mmHg/75 mmHg Indication: New Pulmonary edema, recent NSTEMI/LAD Procedure Staff Referring Physician: Customs Examiner: Kenji Conklin RDCS Reading Physician: Rose Dean MD Requesting Provider: Ordering Physician: Andreas Lira Indication: New Pulmonary edema, recent NSTEMI/LAD Measurements Chambers AV/MV Label Value Normal Value Label Value Normal Value LVOT Vmax 0.98 m/s (0.7m/s - 1.1m/s) AR PHT 0.48 s LVOTd 2 cm (1.8cm - 2cm) AR PHT 479 ms LVOT VTI 23.4 cm (18cm - 22cm) AR Vmax 3.79 m/s LVDd, 2D 4.2 cm (3.9cm - 5.3cm) AV PGmax 9 mmHg LVDs, 2D 2.5 cm (2.1cm - 4cm) AV PGmean 6 mmHg IVSd, 2D 0.9 cm (0.6cm - 1.1cm) AV Vmax 1.52 m/s LVPWd, 2D 0.9 cm AUGUST (Vmax) 2 cm2 LVEF, 2D 73 % (54% - 74%) AUGUST (VTI) 2 cm2 LVOT PGmean 2 mmHg MV E Vmax 1.03 m/s LVOT Vmean 0.64 m/s MV A Vmax 1.09 m/s RVDd, 2D 1.9 cm (1.9cm - 3.8cm) MV E/A 0.94 LA Volume, BP 48 ml (22ml - 52ml) MV E/E' lateral 14.5 LADs, 2D 4 cm (2.7cm - 3.8cm) MV E/E' septal 24 (0.45 - 1.25) LAESV index, BP 29.3 ml/m2 MV E' septal 0.04 m/s RA Area 8.5 cm2 MV VTI 47.9 cm Additional Vessels MVA D (continuity eq.) 1.5 cm2 Label Value Normal Value MV PGmax 8 mmHg AoRoot, MM 2.7 cm (2.2cm - 3.7cm) MV PGmean 3 mmHg IVC 2.1 cm (1.2cm - 2.3cm) MV Deonna 3.1 cm Patient: SIERRA LEÓN Study Date: 11/24/2018 Page 1 of 3 09:21 AM MR Reg. Volume 11 ml MR Reg. Fraction 3 % MR Vmax 4.76 m/s MR VTI 164 cm MR (ERO) 0.07 cm2 MV E' lateral 0.07 m/s MR PISA Radius 0.4 cm MV E/E' mean 18.73 MR PISA Alias V. 30.8 cm/s MV E' mean 0.06 m/s TV/PV Label Value Normal Value RA Pressure 5 mmHg RVSP 51 mmHg TR Pmax 46 mmHg TR Vmax 3.39 m/s PV PGmax 2 mmHg PV Vmax, Caliper 0.72 m/s (0.6m/s - 0.9m/s) Conclusions 1. The left ventricle is normal in size. Overall normal LV systolic function with an ejection fraction estimated to be 65%. Mild apical hypokinesis. Grade 2 diastolic dysfunction with elevated LV filling pressures. 2. The right ventricle is normal in size and systolic function. 3. The left atrium is borderline dilated. 4. Mild mitral regurgitation. 5. Trivial tricuspid regurgitation with moderate pulmonary hypertension estimated at 51 mm of mercury. 6. No prior echocardiogram in the system. Findings Left Ventricle: Mild apical hypokinesis. Left ventricle is normal in size. Normal global systolic left ventricular function. The EF is visually estimated to be 65 %. Grade II Diastolic Dysfunction. Right Ventricle: Normal size right ventricle. Right ventricular systolic function is normal. Left Atrium: The left atirum is borderline dilated. Right Atrium: The right atrium is normal in size. Mitral Valve: Mild mitral regurgitation. No mitral valve stenosis. There is mild mitral calcification. Aortic Valve: No aortic valve regurgitation. There is no aortic stenosis. Aortic leaflets exhibit mild calcification. The aortic valve is trileaflet. Tricuspid Valve: Tricuspid valve leaflets are structurally normal. Trivial tricuspid regurgitation. No tricuspid valve stenosis. There is no tricuspid calcification. Right Ventricular systolic pressure is measured at 51 mmHg. Pulmonic Valve: Pulmonic leaflets are normal in appearance and function. No pulmonic valve regurgitation is evident. Aorta: The aorta is normal. The aortic root size in M-mode measures 2.7 cm. Aorta Measurements Patient: SIERRA LEÓN Study Date: 11/24/2018 Page 2 of 3 09:21 AM AoRoot, MM is 2.7 cm. IVC: The IVC measures 2.1 cm. IVC Measurements IVC is 2.1 cm. Pericardium: No pericardial effusion. Exam Details Procedure Ordered: Echo (No Signature Object) Patient: SEIRRA LEÓN Study Date: 11/24/2018 Page 3 of 3 09:21 AM [id number]
[2018-11-24] MEDS ORDERED: FUROSEMIDE 20 MG/2 ML VIAL IVP ONE (15:52)
--- NOTE | 2018-11-24 16:42 | ASMTCMCOM ---
CM Note CM Note Notes: Spoke with pt's son and daughter in law at length regarding hospital culture and reasonable expectations for communication with staff and hospitalist. Son would like to be called by hospitalist daily if he is not in the room, and understands that he can reach out to hospitalist and Hotel Maintenance Technician through RN. Son would also like to be called any time day or night if there is a change in pt status or treatment plan. Pt is having significant anxiety regarding hospitalization as this is her first hospital experience. Son feels she is depressed due to medical trauma and very anxious while in the hospital, and he wants staff to be aware that her cultural predisposition is to deny her own needs and not ask for what she needs. Son asked for manager social responsibility consult to support pt emotionally. She is Zoroastrian. Pt admitted here from [facility] inpatient rehab and they informed CM today that they can no longer hold her bed. She will need to re-do eval for inpt rehab before dc. Son notified. As of today, PT still recommending inpt rehab. Palliative care eval order placed today. Pall care team notified via text. They will round tomorrow. CM educated son and daughter in law on advantages of palliative care. CM to follow. DC Plan: [facility] Ipt Rehab pending eval and bed availability Date Signed: 11/24/2018 04:41 PM Electronically Signed By:Jesusita Ramos
[2018-11-24] MEDS: IBUPROFEN 200 MG TAB PO PRN (17:30)
[2018-11-24] MEDS: hydrALAZINE 10 MG TAB PO PRN (18:28)
[2018-11-24] MEDS: CARVEDILOL 6.25 MG TAB PO SCH (20:44)
[2018-11-25] MEDS: AMPICILLIN/SULBACTAM 3 GM in NS 100 ML IV SCH (05:15)
[2018-11-25] MEDS: hydrALAZINE 10 MG TAB PO PRN (05:16)
[2018-11-25] MEDS: LEVOTHYROXINE 25 MCG TAB PO SCH (05:16)
[2018-11-25] MEDS ORDERED: POTASSIUM CL 10 MEQ TAB PO ONE (07:20)
[2018-11-25] MEDS: VALSARTAN 160 MG TAB PO SCH (08:18)
[2018-11-25] MEDS: CLOPIDOGREL BISULFATE 75 MG TAB PO SCH (08:18)
[2018-11-25] MEDS: ASPIRIN EC 81 MG TAB PO SCH (08:18)
[2018-11-25] MEDS: CARVEDILOL 6.25 MG TAB PO SCH ×2 (08:19→21:08)
[2018-11-25] MEDS: ENOXAPARIN 40 MG/0.4 ML SYR SC SCH (08:19)
[2018-11-25] MEDS: DOCUSATE SODIUM 100 MG CAP PO SCH (08:20)
--- NOTE | 2018-11-25 08:44 | PDCONSULT ---
Control Integration Engineer Note: Infectious Diseases Consult Note Impression: 83-year-old woman with altered mentation and increased weakness will admitted to inpatient rehab after a stroke and NSTEMI. His feasible her cystitis has contributed to her altered mentation. Her development of mild eosinophilia, mild transaminase elevation, high fevers without a tachycardic response (do not expect low-dose carvedilol to blunt expected tachycardic response with this degree of fever) suggest the possibility that she has developed an adverse reaction, although not quite meeting the diagnostic definition of DRESS, similar to DRESS. With multiple g negatives in her urine will change ampicillin/sulbactam to aztreonam to ensure no cross reactivity amongst beta lactams and yet bite adequate coverage for the g negatives. This medication will not have activity against Enterococcus but this is less likely to be contributing, in addition to the fact that she has received 4 days of ampicillin/sulbactam which is likely adequate to eradicate the Enterococcus organism. Although she is originally from [place] and therefore has risk factors for having chronic infection with Strongyloides, her acute eosinophilia is less likely to be related to Strongyloides hyper infection syndrome as this is typically associated with bloodstream infection with Gram-negative organisms with a precipitant typically related to utilization of corticosteroids. Her advanced age and itself is a risk factor for age related general immune suppression, but this not typically associated with Strongyloides hyper infection syndrome. Most likely etiology of her transaminitis and mild eosinophilia it is related to beta lactams with her receipt of amoxicillin starting on 11/15/2018 and continuing up until the day of admission. Also suspect fevers may be a antibiotic affect as she is not manifesting hemodynamic alterations that would typically consistent with high fevers from an active, acute infection. 1. Altered mentation; possible contribution from cystitis 2. Probable cystitis with polymicrobial gram negatives with Enterococcus 3. Ongoing fever without tachycaric response; possible beta-lactam effect; do no expect low-dose carvedilol to blunt tachycardia response to this degree 4. Acute eosinophilia, mild; started on/about 4.16.19 5. Transaminitis, acute and mild; started on/about 4.18.19 6. DNR status 7. History of LAD stent .12.20 due to NSTEMI 8. History of stroke 9. Acute lymphopenia Plan: 1. Stop ampicillin/sulbactam 2. Start aztreonam 1gm q8 hours 3. Await further identification of urinary tract gram-negative organisms 4. Antibiotic history: aztreonam (4.24.19- ); ampicillin/sulbactam (4.20.19- 4.24.19); amoxicillin (4.14.19-4.20.19); Bactrim (4.14.19) Amaury Kaminski MD Infectious Diseases Chief Complaint: Admitted with altered mentation and increased weakness Requesting Provider: Delfina Fermin Reason for Referral: Consultation was requested by Delfina Fermin regarding antimicrobial management. HPI: 83-year-old woman who was admitted to the hospital from inpatient rehab on 11/21/2018 with altered mentation and increased weakness. She was admitted to the rehab facility on 11/11/2018 after 7 day stay in [facility] for an NSTEMI and stroke. She underwent stenting of the LAD on 11/06/2018 with resolution of apical akinesis seen on TTE. Note states she received antibiotics for UTI but the details of these medications are not available in the medical record. After admission to inpatient rehab on 11/11 she was progressing as expected but developed increasing confusion and decreased ability to participate in physical therapy over the 5 days or so prior to admission. She had 1 episode of leukocytosis on 11/13/2018 of 10.5 which prompted an evaluation for infection with a UA showing pyuria and urine culture showing multiple g negatives and Enterococcus faecalis. She was started on initially Bactrim which was stopped after the 1st day and changed amoxicillin which she had received through the time of admission. There is no fever documented until the day of admission on 11/21 at 5:00 p.m. Measured at 39.4 she continued to have daily high-grade fevers after admission with 39.9 measured on 11/22 at midnight with heart rate of 74 at the time, 38.4 on 11/23 at 10:00 p.m., in a temperature of 38.7 degrees on 11/24 at 6:30 p.m.. She is awake and alert sitting up in bed working with physical therapy but she is unable to provide details of her medical history. When asked was city she is in she looks out the window and was uncertain. She states her primary symptom is feeling generally tired and has not had rash, abdominal pain, diarrhea, or cough. Reviewed patient medical records in [facility], [facility], and [facility] ([place], [place]) ([facility]). Travel history: Born and raised in [place]. Unable to answer when asked when she moved to the [place]. Past Medical History: Right-sided stroke with residual deficits; NSTEMI with LAD stent on 11.06.18 Past Surgical History: Cardiac catheterization 11.06.18 Social History: Does not use tobacco products; Does not consume marijuana products; Does not drink alcohol; Does not use any other drugs currently or in the past Family History: No family members with recurrent infections Allergies: No known antibiotic allergies Medications: Reviewed in medical record. ROS: 10 organ systems reviewed; pertinent positives and negatives listed in the HPI, all other organ systems negative. Physical Exam: VS: Reviewed Gen: No acute distress; Breathing comfortably without supplemental oxygen; Able to speak in partial sentences Eyes: No conjunctival injection; No scleral icterus HENT: No gross deformities Neck: No limitation in range of motion Pulm: Audible inspiratory sounds to the bases bilaterally; No wheeze, rhonchi, or rales CV: Normal S1 and S2; Regular rate and rhythm; No murmurs, rubs, or gallops; No lower extremity edema Abd: Not distended; Normo-active bowel sounds; Soft; Non-tender Skin: A full skin exam including exposed bilateral upper extremities, bilateral lower extremities to the knees, face, neck, abdomen, chest, and back performed; Skin intact, warm, with no rash MSK: Joints without erythema or edema; No gross limitation in range of motion Ext: No clubbing or cyanosis Neuro: Awake and alert; Leans to left while sitting upright Psych: Normal mood and blunted affect Labs/Imaging: All microbiology testing (culture and non-culture) reviewed in the medical record. Personally reviewed and interpreted the images of the following radiographs: Chest CT from 11.18.18 showing clear parenchymal lung fairchild. Chest x-ray from 11.20.18 showing clear lung fairchild. Medications Generic Name Dose Route Start Last Admin Trade Name Freq PRN Reason Stop Dose Admin Ampicillin Sodium/Sulbactam 100 mls @ 200 mls/hr 11/22/18 00:00 11/25/18 05: 15 Sodium 3 gm/ Sodium Chloride IV 12/22/18 00:00 100 mls Q6HRS [facility] Protocol Microbiology 11/21/18 23:11 Nasal, Sinus - Swab Respiratory Panel (PCR) - Final No Organism Detected By Pcr Laboratory Tests 11/21/18 11/21/18 11/22/18 22:13 22:13 04:51 WBC 8.98 7.19 Plt Count 289 250 Absolute Lymphs (auto) 0.34 L Absolute Eos (auto) 0.43 H Creatinine 0.6 AST ALT NT-Pro-B Natriuret Pep 11/22/18 11/23/18 11/23/18 04:51 04:50 04:50 WBC 6.82 Plt Count 227 Absolute Lymphs (auto) 0.63 L Absolute Eos (auto) 1.01 H Creatinine 0.6 0.5 L AST 198 H 151 H ALT 253 H 217 H NT-Pro-B Natriuret Pep 11/24/18 11/25/18 05:00 05:12 WBC Plt Count Absolute Lymphs (auto) Absolute Eos (auto) Creatinine AST 115 H ALT 190 H NT-Pro-B Natriuret Pep 1410 H Microbiology 03/06/15 15:25 Urine,Clean Catch Urine Culture - Final Escherichia Coli 11/13/18 17:55 Urine,Clean Catch Urine Culture - Final Enterococcus Faecalis Gram Negative Guillermo [place] Types 11/21/18 18:29 Blood Blood Culture - Preliminary 11/21/18 18:00 Blood Blood Culture - Preliminary 11/21/18 03:00 Urine,Clean Catch Urine Culture - Preliminary Gram Neg Guillermo Nonlactose Ferm. Gram Neg Guillermo Nonlactose Ferm.#2 Gram Neg Guillermo Lactose Communications Coordinator Enterococcus Faecalis Ongoing monitoring for antimicrobial toxicity with: CBC, BMP, interval historical information, and interval physical exam. [id number] time with patient: 63 minutes with >50% of [id number] time spent in counseling, patient education, and coordinating care. Counseling provided included the microbiology of urinary tract infection, cystitis contributing to altered mentation, eosinophilic side effects of beta-lactam antibiotics, expected time to resolution, natural history without treatment, and side effects of treatment.
[2018-11-25] MEDS ORDERED: clonazePAM 0.5 MG TAB PO SCH (11:00)
--- NOTE | 2018-11-25 12:13 | HOSPPROG ---
Hospitalist Progress Note Assessment/Plan: This patient initially presented to [facility] with stroke sxs (unable to have MRI), and while there had signs of CAD/ischemia so a stent was placed in LAD "asymptomatic NSTEMI" per records. She was sent here to Rehab Unit on 11/11 but on 11/20 had T 39.9, low BP, and elevation of liver enzymes. She was transferred to inpt care on hospitalist service, Abx started with Unasyn, IV fluids given. That night she had some dyspnea and hypoxemia, and was given a dose of Lasix. *fever/poss DRESS SYNDROME or cystitis -second blood cx pending, first set showed no growth -Unasyn dc -now on Aztreonam -having persistent fevers today *transaminitis -possibly due to the above -alk phos cont to be high -curb sided GI and recommendation was to get a repeat ultrasound *tachypnea -not requiring O2 but use of accessory muscles w talking -reviewed imaging from earlier this month, CTA shows no PE (this was done on )-showed small left pleural effusion -patient has some anxiety-trial of antianxiety med *htn, uncontrolled -will resume her Valsartan and Coreg *Pulmonary edema -was given a dose of Lasix yesterday (gave her 20 mg) -CT of chest stable -echo done this morning; will f/u with this -she has some wheezing, rechecked chest x ray which shows CHF *diastolic CHF -has received multiple doses of IV Lasix -echo shows mild apical hypokinesis, grade 2 diastolic dysfunction *hypokalemia -stable *deconditioning -PT and OT *hyponatremia -follow *normocytic anemia *recent stroke w residual left sided weakness -PT and OT -patient is not very verbal today and moves her head back and forth/ did a repeat CT of her head today which showed nothing acute *CAD w LAD stent placed a [facility] on November 06 (NSTEMI) -plavix *plan:> 60 minutes caring for Curt. Had a meeting with Palliative Care team earlier today. They had difficulty talking w Curt about goals of care. Palliative Care RNRadha, patient's nurse, Elise, and myself met w the patient 's son and his . Reviewed with them concerns of her not eating, her anxiety , not wanting medications. Her son realizes she is acting like she wants to . I told him I am concerned. Her liver enzymes are a bit better with the exception of the alk phos, explained it's difficult to diurese her and she is not taking in fluids. For now, will see if she improves w changing the antibiotic, check an ultrasound, check chemistry and BNP in the morning. Subjective: Curt says 'yes' to everything I ask her. Objective: Vital Signs Temp Pulse Resp BP Pulse Ox 38.2 C 68 24 H 168/60 H 91 L 11/25/18 07:52 11/25/18 07:52 11/25/18 07:52 11/25/18 10:57 11/25/18 07:52 Laboratory Results 11/23/18 04:50 11/25/18 05:12 11/24/18 11/25/18 11/26/18 05:59 05:59 05:59 Intake Total 250 250 Output Total 850 1300 Balance -600 -1050 - Physical Exam Constitutional: chronically ill appearing Eyes: PERRL Cardiovascular: regular rate and rhythym Respiratory: reduced air movement, expiratory wheeze, No no respiratory distress (increase resp rate) Skin: warm Musculoskeletal: generalized weakness Psychiatric: other (withdrawn and not very verbal today) ICD10 Worksheet Patient Problems: Problems Problem Status Onset CVA (cerebral vascular accident) Acute Weakness Acute
[2018-11-25] MEDS ORDERED: IBUPROFEN SUSP 100 MG/5 ML UDCUP PO PRN (13:12)
[2018-11-25] MEDS ORDERED: AZTREONAM 1 GM in NS 50 ML IV SCH (14:00)
[2018-11-25] MEDS ORDERED: ACETAMINOPHEN 120 MG SUPP PR ONE (14:26)
--- NOTE | 2018-11-25 15:23 | ASMTCMCOM ---
CM Note CM Note Notes: CM spoke to Radha cortes/ [place]. Pts son is agreeable to meeting sophia/ Abigail tomorrow. They will come tomorrow at 1PM for a meeting. Date Signed: 11/25/2018 03:22 PM Electronically Signed By:TOM Brock
--- NOTE | 2018-11-25 15:24 | ASMTCMCOM ---
CM Note CM Note Notes: Pts case discussed w/ Delfina Fermin NP. CM met w/ pts son Ascencion (P#: [phone]). CM provided a list of inpatient rehab facilities. Ascencion states that he will take a look at them and let CM know. This is in case [facility] inpatient rehab does not have a bed available. CM spoke to Radha and Ifeanyi w/ palliative. They will follow up with pt and Ascencion. CM to follow. Plan: Inpatient Rehab Date Signed: 11/25/2018 03:01 PM Electronically Signed By:TOM Brock
[2018-11-25] MEDS ORDERED: NS 250 ML IV SCH (16:15)
[2018-11-25] MEDS: MEROPENEM 1 GM in NS 100 ML IV SCH (18:43)
--- NOTE | 2018-11-25 19:23 | GCON ---
[f rep st] CONSULTATION DATE OF CONSULTATION: 11/25/2018 REQUESTING HEALTHCARE PROFESSIONAL: Delfina Fermin. INDICATION FOR CONSULTATION: Abnormal liver enzymes. HPI: I have been asked to see the patient in consultation with chief complaint of elevated liver enz ymes. Most all of this history is obtained from the chart, as the patient is currently obtunded and cannot give any history. She is an 83-year-old female who was admitted from the inpatient rehab afte r suffering a CVA with residual left-sided weakness and a non ST elevated [place] with LAD stent placed ba ck on November 06. In rehab she became weaker and spiked a fever and became more somnolent with an alt ered mental status. She had a culture on November 13 that grew out a small amount of enterococcus and another urine culture on the that grew out a number of different organisms. She had initially been placed on Bactrim but that was changed to amoxicillin which she received prior to coming to the hospital. At [facility] she was placed on ampicillin sulbactam; however, over the last number of days her liver enzymes have elevated and she has developed a fever. ID consult was obtain ed and they felt that she could possibly have a presentation of DRESS. She does have some eosinophil ia and these fevers without significant tachycardia or other hemodynamic alterations. Her alkaline p hosphatases increased markedly over the last number of days and her liver enzymes, her AST and ALT, h ave also increased while the bilirubin has stayed normal. I have been asked to evaluate her liver en zyme elevation and to see if there is any source of infection that requires any other intervention. PAST MEDICAL HISTORY: Right-sided stroke with visual deficits, non ST elevation KS with LAD stent ea rly November of this year. Hypertension, hypothyroidism, history of anemia. PAST HISTORY: Coronary stent. FAMILY HISTORY: Unobtainable from the patient. In the chart it says non pertinent. PERTINENT SOCIAL HISTORY: She does not smoke. She does not drink. MEDICATIONS: In hospital currently include albuterol inhaler p.r.n., Artificial Tears, aspirin 81 mg daily, Coreg 12.5 mg twice daily, Plavix 75 mg p.o. daily, Benadryl cream p.r.n. itching, Colace 100 mg daily, Lovenox 40 mg daily, hydralazine 10 mg three times daily p.r.n., ibuprofen p.r.n., Synthro id 25 mcg a day, meropenem 1 g IV q.a., nystatin oral liquid 5000 units p.o. four times daily, Zofran p.r.n., Diovan 320 mg a day. ALLERGIES: No known drug allergies. REVIEW OF SYSTEMS: Unobtainable. PHYSICAL EXAM: GENERAL: Elderly female, lying in her bed in discomfort. VITAL SIGNS: Blood pressu re is 150/70, pulse is 72, respirations are 28. She is 87% on room air, earlier today she was 92% on room air. T-max is 38.8. HEENT: Eyes: Anicteric. Mouth: No lesions. NECK: No JVD. No lymph nodes. LUNGS: Coarse breath sounds. I do not appreciate any rhonchi or rales. CARDIAC: S1, S2. No murmurs, rubs or gallops appreciated. ABDOMEN: Bowel sounds are normal in pitch and frequency. Soft with diffuse tenderness, but she also has tenderness with palpation over her chest. EXTREMITIES : No cyanosis, clubbing, or edema. NEUROLOGIC: She is obtunded and does not follow commands. She responds to tactile stimuli. SKIN: No stigmata of advanced liver disease. No rashes. LABORATORY DATA: From today, AST 115, ALT 190, alkaline phosphatase 860, bilirubin 0.8, magnesium 1. 9. From November 23: AST 151, ALT 217, alkaline phosphatase 469. Sodium 132, potassium 3.1, chlorid e 99, bicarb 23, BUN 14, creatinine 0.5, glucose 97. At that point, bilirubin was elevated at 1.1. On the : AST 198, ALT 253, alkaline phosphatase 376. On the : AST 337, ALT 308, alkaline p hosphatase 428. On November 18: AST 22, ALT 37, alkaline phosphatase 73. From the : WBC 6.82, hemoglobin 11.5, hematocrit 33.8, platelet count 227. From the : Hep A IgM negative, hep B surf celeste antigen negative, hep B core antibody IgM negative, hep C antibody negative. Abdominal ultrasoun d performed November 22 revealed no cholelithiasis, biliary dilatation, hydronephrosis, or free fluid. Small right pleural effusion, unchanged. The urine culture from the grew out Pseudomonas aeru ginosa, Proteus mirabilis, E coli and enterococcus faecalis. From the , a urine culture grew out enterococcus faecalis, gram-negative rods, 2 colony types. Blood cultures from the and ar e both pending with no growth to date. Her respiratory panel on November 21 showed negative by PCR. ASSESSMENT: 1. Elevated liver enzymes with AST, ALT decreasing, but alkaline phosphatase increasing. 2. Fevers without other evidence of infection. 3. Abnormal urine cultures. 4. Blood cultures are pending. 5. History of stroke. 6. Coronary artery disease status post stents. 7. Obtunded, altered mental status. RECOMMENDATIONS: 1. Changing antibiotics as per ID. 2. Follow up blood cultures. 3. Treatment of possible DRESS syndrome as per hospitalist and ID. 4. Follow LFTs. Expect alkaline phosphatase to continue to increase and AST and ALT to decrease. 5. If bilirubin goes up, would repeat ultrasound to make sure there is no evidence of biliary dilata tion. 6. Further recommendations to following results of clinical course. I suspect that she has a drug reaction to the antibiotics that has caused the elevation in alkaline p hosphatase and the AST and ALT. The alkaline phosphatase will continue to elevate for a number of da ys before it plateaus and decreases but the AST and ALT I suspect will decrease. I expect that her b lood cultures will be negative, but if they are positive we have to look for a different source, i.e. biliary in addition to her urinary tract. Thank you for allowing me to participate in the patient's healthcare. Do not hesitate to call me if any questions. Sincerely, /[id number]/MODL
--- NOTE | 2018-11-25 19:25 | SOAPPROG ---
SOAP Progress Note Assessment/Plan: Assessment:Plan: see full dictated consult 83 y/o female with CVA, CAD admitted with prob UTI and now possible DRESS increased ALKphos and also mild ALT/AST c/w= drug induced hepatitis from Ampicillin/sulbactam abx now changed expect alkp to go up for few more days then plateau if bili goes up I would repeat RUQ sonogram f/u bc'x which are NTD Yassine Middleton MD [phone] 11/25/18 19:22 Objective: Vital Signs Temp Pulse Resp BP Pulse Ox 38.8 C H 68 20 150/70 H 88 L 11/25/18 15:56 11/25/18 16:47 11/25/18 16:47 11/25/18 15:56 11/25/18 16:47 Laboratory Results 11/23/18 04:50 11/25/18 18:43 11/24/18 11/25/18 11/26/18 05:59 05:59 05:59 Intake Total 250 250 50 Output Total 850 1300 550 Balance -600 -1050 -500 ICD10 Worksheet Patient Problems: Problems Problem Status Onset CVA (cerebral vascular accident) Acute Weakness Acute
[2018-11-25] MEDS ORDERED: ACETAMINOPHEN 650 MG SUPP PR ONE (21:08)
--- NOTE | 2018-11-25 21:17 | HOSPPROG ---
Hospitalist Progress Note Assessment/Plan: Received notification from nighttime RN pt continues to have high grade fevers throughout today, has already received Tylenol 120 mg NE and does have transaminitis. Comparing her temperature from yesterday to today, there has been a noticeable increase w/thoughts of DRESS syndrome being the culprit. Will pull new blood cultures (blood cultures pulled yesterday show no growth to date), NPO at midnight tonight for the possibility of intervention in AM and LFTs in AM. Will provide Tylenol 650 mg NE now for elevated fever of 38.8c. Objective: Vital Signs Temp Pulse Resp BP Pulse Ox 38.8 C H 69 20 168/80 H 91 L 11/25/18 20:50 11/25/18 20:00 11/25/18 20:00 11/25/18 20:00 11/25/18 20:00 Laboratory Results 11/23/18 04:50 11/25/18 18:43 11/24/18 11/25/18 11/26/18 05:59 05:59 05:59 Intake Total 250 250 50 Output Total 850 1300 550 Balance -600 -1050 -500 ICD10 Worksheet Patient Problems: Problems Problem Status Onset CVA (cerebral vascular accident) Acute Weakness Acute
[2018-11-25] MEDS: NYSTATIN SUSP 500000 UNIT/5 ML UD LIQ PO SCH ×3 (21:34→22:19)
[2018-11-25] MEDS: POTASSIUM Cl (KCl) 100 ML IV SCH (22:59)
[2018-11-26] MEDS: POTASSIUM Cl (KCl) 100 ML IV SCH ×2 (00:06→01:25)
[2018-11-26] MEDS: MEROPENEM 1 GM in NS 100 ML IV SCH ×3 (02:14→18:05)
[2018-11-26] MEDS: LEVOTHYROXINE 25 MCG TAB PO SCH (05:03)
[2018-11-26] MEDS: NYSTATIN SUSP 500000 UNIT/5 ML UD LIQ PO SCH ×4 (05:03→22:21)
[2018-11-26] MEDS: CARVEDILOL 6.25 MG TAB PO SCH ×2 (09:12→18:06)
[2018-11-26] MEDS: CLOPIDOGREL BISULFATE 75 MG TAB PO SCH (09:12)
[2018-11-26] MEDS: ASPIRIN EC 81 MG TAB PO SCH (09:12)
[2018-11-26] MEDS: VALSARTAN 160 MG TAB PO SCH (09:12)
[2018-11-26] MEDS ORDERED: FUROSEMIDE 20 MG/2 ML VIAL IVP ONE (09:54)
[2018-11-26] MEDS: ENOXAPARIN 40 MG/0.4 ML SYR SC SCH (11:44)
[2018-11-26] MEDS: DOCUSATE SODIUM 100 MG CAP PO SCH (11:44)
--- NOTE | 2018-11-26 12:27 | HOSPPROG ---
Hospitalist Progress Note Assessment/Plan: This patient initially presented to [facility] with stroke sxs (unable to have MRI), and while there had signs of CAD/ischemia so a stent was placed in LAD "asymptomatic NSTEMI" per records. She was sent here to Rehab Unit on 11/11 but on 11/20 had T 39.9, low BP, and elevation of liver enzymes. She was transferred to in care on hospitalist service, Abx started with Unasyn, IV fluids given. That night she had some dyspnea and hypoxemia, and was given a dose of Lasix. *fever/poss DRESS SYNDROME or cystitis -blood cx NGTD -on Meropenem -was having persistent fevers -none so far today *transaminitis -possibly due to the above -ultrasound shows CBD slightly dilated -appreciate GI following *tachypnea -not requiring O2 but use of accessory muscles w talking -reviewed imaging from earlier this month, CTA shows no PE (this was done on )-showed small left pleural effusion -much improved today *htn, uncontrolled - resume her Valsartan and Coreg -prn Hydralazine *Pulmonary edema -improved -on room air *acute diastolic CHF -dose of IV Lasix given today -echo shows mild apical hypokinesis, grade 2 diastolic dysfunction -will place her on daily oral Lasix *hypokalemia -stable *deconditioning -PT and OT *hyponatremia -follow/repeat labs in a.m. *normocytic anemia *recent stroke w residual left sided weakness -PT and OT -patient is not very verbal today and moves her head back and forth/ did a repeat CT of her head today which showed nothing acute *CAD w LAD stent placed a [facility] on November 06 (NSTEMI) -plavix *concern for situational depression -had a stroke, [place], and then rehospitalized. Patient and family would like to try an antidepressant. She also lost her to pancreatic cancer. Celexa low dose started. *plan:[facility] and our palliative care team met with the family. They are interested in f/u Palliative care. Also, spoke with the patient son (from [place] who flew in to see his mom). She is not wanting to eat or drink. They would like to try treatment for several more days to see if she improves; if she continues not eating or drinking; then they will further discuss other options. Subjective: Curt is awake but really doesn't say much. Nods her head no when asked if in pain. Objective: Vital Signs Temp Pulse Resp BP Pulse Ox 36.9 C 59 L 16 185/86 H 94 11/26/18 11:57 11/26/18 11:57 11/26/18 11:57 11/26/18 11:57 11/26/18 11:57 Laboratory Results 11/23/18 04:50 11/26/18 04:45 11/25/18 11/26/18 11/27/18 05:59 05:59 05:59 Intake Total 250 50 Output Total 1300 750 Balance -1050 -700 - Physical Exam Constitutional: not in pain, chronically ill appearing Eyes: PERRL Ears, Nose, Mouth, Throat: hearing normal Cardiovascular: regular rate and rhythym Respiratory: no respiratory distress, reduced air movement Skin: warm Musculoskeletal: generalized weakness Neurologic: other (alert but not talkative) ICD10 Worksheet Patient Problems: Problems Problem Status Onset CVA (cerebral vascular accident) Acute Weakness Acute
--- NOTE | 2018-11-26 12:50 | PCMIDPN ---
Assessment/Plan: Assessment: 83-year-old woman with altered mentation and increased weakness with likely contributions from cystitis and possible DRESS Syndrome from amoxicillin. Overall her fevers have improved since 9:00 p.m. Last evening. Her eosinophil count is slightly higher today but her transaminase levels are lower. Expect at least another 24 hr to see in noticeable response. 1. Altered mentation possible contribution from cystitis 2. High-grade fever, suspect DRESS Syndrome and/or amoxicillin reaction 3. Acute eosinophilia, mild; started on/about 11/17/2018 4. Transaminitis, acute and mild; started on/about 11/19/2018; improved 5. DNR status 6. History of LAD stent 11/06/2018 due to NSTEMI 7. History of stroke, on/about 11/04/2018 8. Acute lymphopenia Plan: 1. Continue meropenem for a total of 72 hr; stop date placed 2. Continue to monitor CBC with differential and hepatic function daily 3. Will repeat UA and urine culture after completing 3 days meropenem 4. Reviewed in detail potential side effects of beta-lactam antibiotics to include: allergy, rash, nausea, antibiotic-associated diarrhea, Clostridioides difficile colitis. Amaury Kaminski MD Infectious Diseases 11/26/18 12:53 Subjective: Fevers documented throughout the evening with last high-grade fever at approximately 9:00 p.m.. More somnolent today as she had significant anxiety requiring medication treatment due to shortness of breath. Objective: Vital Signs Temp Pulse Resp BP Pulse Ox 36.9 C 59 L 16 185/86 H 94 11/26/18 11:57 11/26/18 11:57 11/26/18 11:57 11/26/18 11:57 11/26/18 11:57 Laboratory Results 11/23/18 04:50 11/26/18 04:45 11/25/18 11/26/18 11/27/18 05:59 05:59 05:59 Intake Total 250 50 Output Total 1300 750 Balance -1050 -700 Microbiology 11/21/18 23:11 Nasal, Sinus - Swab Respiratory Panel (PCR) - Final No Organism Detected By Pcr 11/24/18 19:55 Blood Blood Culture - Preliminary 11/24/18 19:50 Blood Blood Culture - Preliminary Laboratory Tests 11/21/18 11/22/18 11/23/18 22:13 04:51 04:50 Plt Count 289 250 227 Absolute Eos (auto) 0.43 H 1.01 H Creatinine AST ALT 11/25/18 11/26/18 05:12 04:45 Plt Count Absolute Eos (auto) Creatinine 0.5 L AST 115 H 79 H ALT 190 H 135 H - Physical Exam General Appearance: no apparent distress, non-toxic EENT: No scleral icterus Respiratory: No respiratory distress, No accessory muscle use Neck: supple Extremities: No swelling Skin: No erythema Neuro/Psych: other (Somnolent, wakes to verbal and tactile stimuli) - Time Spent With Patient Time Spent with Patient: greater than 35 minutes (Discussed diagnosis in expected response to treatment changes with family at bedside at length) Time Spent with Patient: Greater than 35 minutes spent on this patients care, greater than 50% of time spent counseling, educating, and coordinating care regarding the above mentioned plan. ICD10 Worksheet Patient Problems: Problems Problem Status Onset CVA (cerebral vascular accident) Acute Weakness Acute
[2018-11-26] MEDS: CITALOPRAM 20 MG TAB PO SCH ×3 (13:44→18:06)
--- NOTE | 2018-11-26 13:44 | SOAPPROG ---
SOAP Progress Note Assessment/Plan: Assessment:Plan: see full dictated consult 83 y/o female with CVA, CAD admitted with prob UTI and now possible DRESS increased ALKphos and also mild ALT/AST c/w= drug induced hepatitis from Ampicillin/sulbactam abx now changed expect alkp to go up for few more days then plateau if bili goes up I would repeat RUQ sonogram f/u bc'x which are NTD Yassine Middleton MD [phone] 11/25/18 19:22 _ 11/26/18 13:42 1) LFT's - prob from her amoxicillin abx - trending down (even alkphos) and with no fevers today after abx changed 2) fever - none today ?DRESS? no change in plan, f/u cx's, follow LFT's Subjective: cc - elevated LFT's - probable DRESS not alert, responds to touch and voice Objective: Vital Signs Temp Pulse Resp BP Pulse Ox 36.9 C 59 L 16 185/86 H 94 11/26/18 11:57 11/26/18 11:57 11/26/18 11:57 11/26/18 11:57 11/26/18 11:57 Laboratory Results 11/23/18 04:50 11/26/18 04:45 11/25/18 11/26/18 11/27/18 05:59 05:59 05:59 Intake Total 250 50 Output Total 1300 750 Balance -1050 -700 clear anteriorly S1S2 +Bs soft tender no rebound Laboratory Tests 11/25/18 11/26/18 05:12 04:45 AST 115 H 79 H ALT 190 H 135 H Alkaline Phosphatase 860 H 577 H ICD10 Worksheet Patient Problems: Problems Problem Status Onset CVA (cerebral vascular accident) Acute Weakness Acute
[2018-11-26] MEDS: hydrALAZINE 10 MG TAB PO PRN (22:21)
[2018-11-26] MEDS: TEARS/DEXTRAN 70/HYPROMELLOSE 15 ML OPHT.BTL EACHEYE PRN (23:51)
[2018-11-27] MEDS ORDERED: POTASSIUM CL 10 MEQ TAB PO ONE ×2 (00:27→10:18)
[2018-11-27] MEDS: MEROPENEM 1 GM in NS 100 ML IV SCH ×3 (00:55→17:32)
[2018-11-27] MEDS: hydrALAZINE 10 MG TAB PO PRN (05:19)
[2018-11-27] MEDS: LEVOTHYROXINE 25 MCG TAB PO SCH (05:19)
[2018-11-27] MEDS: NYSTATIN SUSP 500000 UNIT/5 ML UD LIQ PO SCH ×4 (05:22→20:54)
[2018-11-27 05:35] LABS: PLATELET COUNT 254 10^3/uL (150-400)
[2018-11-27] MEDS: DOCUSATE SODIUM 100 MG CAP PO SCH (09:13)
[2018-11-27] MEDS: CITALOPRAM 20 MG TAB PO SCH (09:13)
[2018-11-27] MEDS: FUROSEMIDE 20 MG TAB PO SCH (09:14)
[2018-11-27] MEDS: CARVEDILOL 6.25 MG TAB PO SCH ×2 (09:14→17:31)
[2018-11-27] MEDS: CLOPIDOGREL BISULFATE 75 MG TAB PO SCH (09:14)
[2018-11-27] MEDS: VALSARTAN 160 MG TAB PO SCH (09:15)
[2018-11-27] MEDS: TEARS/DEXTRAN 70/HYPROMELLOSE 15 ML OPHT.BTL EACHEYE PRN (09:40)
[2018-11-27] MEDS: ASPIRIN EC 81 MG TAB PO SCH (10:14)
[2018-11-27] MEDS ORDERED: MAGNESIUM SULF 1 GM/DEXTROSE 100 ML IV ONE (10:22)
[2018-11-27] MEDS: DIPHENHYDRAMINE CREAM TP PRN (10:55)
[2018-11-27] MEDS: ENOXAPARIN 40 MG/0.4 ML SYR SC SCH (11:41)
--- NOTE | 2018-11-27 11:48 | PCMIDPN ---
Assessment/Plan: Assessment: 83-year-old woman with altered mentation and increased weakness with likely contributions from cystitis and possible DRESS Syndrome from amoxicillin. Continues to improve overall with no fevers in over 24 hr. Eosinophilia continues to increase slowly which is expected to improve over the next 24-48 hours. Hepatic transaminase elevations slowly improving. Overall her clinical condition is improved with increased alertness and improving metabolic abnormalities. 1. Altered mentation possible contribution from cystitis; improved 2. High-grade fever, suspect DRESS Syndrome and/or amoxicillin reaction; improved 3. Acute eosinophilia, mild; started on/about 11/17/2018; increasing 4. Transaminitis, acute and mild; started on/about 11/19/2018; improved 5. DNR status 6. History of LAD stent 11/06/2018 due to NSTEMI 7. History of stroke, on/about 11/04/2018 8. Acute lymphopenia; resolved Plan: 1. Continue meropenem for a total of 72 hr; stop date placed for 11/28 at approximately 5:30 p.m. 2. Continue to monitor CBC with differential and hepatic function daily 3. Will repeat UA and urine culture after completing 3 days meropenem; ordered for 11/29 4. Reviewed in detail potential side effects of beta-lactam antibiotics with family to include: allergy, rash, nausea, antibiotic-associated diarrhea, Clostridioides difficile colitis. Amaury Kaminski MD Infectious Diseases 11/27/18 11:48 Subjective: No fever in approximately 24 hr. She is more awake and alert although not holding conversation. Objective: Vital Signs Temp Pulse Resp BP Pulse Ox 36.5 C 57 L 18 170/72 H 94 11/27/18 08:00 11/27/18 09:14 11/27/18 08:00 11/27/18 09:15 11/27/18 08:00 Laboratory Results 11/27/18 05:00 11/27/18 05:00 11/26/18 11/27/18 11/28/18 05:59 05:59 05:59 Intake Total 50 Output Total 750 600 Balance -700 -600 Medications Generic Name Dose Route Start Last Admin Trade Name Freq PRN Reason Stop Dose Admin Meropenem 1 gm/ Sodium 120 mls @ 120 mls/hr 11/25/18 17:30 11/27/18 09:16 Chloride IV 11/28/18 17:29 120 mls Q8H [facility] Protocol Microbiology 11/21/18 23:11 Nasal, Sinus - Swab Respiratory Panel (PCR) - Final No Organism Detected By Pcr 11/25/18 21:58 Blood Blood Culture - Preliminary 11/25/18 21:50 Blood Blood Culture - Preliminary 11/24/18 19:55 Blood Blood Culture - Preliminary 11/24/18 19:50 Blood Blood Culture - Preliminary Laboratory Tests 11/22/18 11/23/18 11/25/18 04:51 04:50 05:12 WBC Hgb Absolute Neuts (auto) Absolute Lymphs (auto) Absolute Eos (auto) 0.43 H 1.01 H Creatinine AST 115 H ALT 190 H 11/26/18 11/27/18 11/27/18 04:45 05:00 05:00 WBC 9.17 Hgb 12.0 L Absolute Neuts (auto) 5.19 Absolute Lymphs (auto) 1.58 Absolute Eos (auto) 1.69 H Creatinine 0.4 L AST 79 H 76 H ALT 135 H 129 H - Physical Exam General Appearance: no apparent distress, non-toxic EENT: No scleral icterus Respiratory: No respiratory distress, No accessory muscle use Neck: full range of motion, supple Skin: No erythema Neuro/Psych: alert, depressed affect, confused - Time Spent With Patient Time Spent with Patient: greater than 35 minutes (Discussed with patient and family at bedside adverse reactions to antibiotics which can include high fevers , altered mentation, and liver irritation, expected time to resolution after withdrawal, cystitis and its effect in the elderly on mentation) Time Spent with Patient: Greater than 35 minutes spent on this patients care, greater than 50% of time spent counseling, educating, and coordinating care regarding the above mentioned plan. ICD10 Worksheet Patient Problems: Problems Problem Status Onset CVA (cerebral vascular accident) Acute Weakness Acute
--- NOTE | 2018-11-27 12:12 | ASMTCMCOM ---
CM Note CM Note Notes: Spoke w/[facility], they states they did not receive referral, was sent on 11/25. CM resent today. Son still wants mother to go to our inpt rehab before considering others. DC Plan: [facility] Date Signed: 11/27/2018 12:11 PM Electronically Signed By:Malou Baer RN
--- NOTE | 2018-11-27 12:24 | HOSPPROG ---
Hospitalist Progress Note Assessment/Plan: 83 year old female transferred from inpatient rehab where she had been admitted after suffering a CVA and NSTEMI with fever, AMS, transaminitis and possible cystitis. *fever/poss DRESS SYNDROME or cystitis -blood cx NGTD -on Meropenem, ID recommending meropenem until 11/28, then redraw cultures -was having persistent fevers-no fevers for 24hours now *transaminitis -possibly due to the above -ultrasound shows CBD slightly dilated -LFts stable to slightly better today. -GI feels this is due to drug reaction, recommends stopping offending agent and monitoring LFTs *tachypnea -not requiring O2 but use of accessory muscles w talking -reviewed imaging from earlier this month, CTA shows no PE (this was done on )-showed small left pleural effusion -much calmer today with no hypoxia. *htn, uncontrolled - resume her Valsartan and Coreg -prn Hydralazine *Pulmonary edema -improved -on room air *acute diastolic CHF -dose of IV Lasix given yesterday -echo shows mild apical hypokinesis, grade 2 diastolic dysfunction -will place her on daily oral Lasix, monitor renal function, and lytes *hypokalemia -stable *deconditioning -PT and OT *hyponatremia -follow/repeat labs in a.m. -slightly worse today, check urine sodium *normocytic anemia *recent stroke w residual left sided weakness -PT and OT -patient is not very verbal today and moves her head back and forth/ did a repeat CT of her head today which showed nothing acute *CAD w LAD stent placed a [facility] on November 06 (NSTEMI) -plavix *concern for situational depression -had a stroke, [place], and then rehospitalized. Patient and family would like to try an antidepressant. She also lost her to pancreatic cancer. Celexa low dose started. *plan:[facility] and our palliative care team met with the family. They are interested in f/u Palliative care. Also, spoke with the patient son (from [place] who flew in to see his mom). She is not wanting to eat or drink. They would like to try treatment for several more days to see if she improves; if she continues not eating or drinking; then they will further discuss other options. family wants patient to go back to inpatient rehab when acute symptoms resolved. Subjective: patient appears calm. Not able to express much in way of concerns. Objective: Vital Signs Temp Pulse Resp BP Pulse Ox 36.5 C 57 L 18 170/72 H 94 11/27/18 08:00 11/27/18 09:14 11/27/18 08:00 11/27/18 09:15 11/27/18 08:00 Laboratory Results 11/27/18 05:00 11/27/18 05:00 11/26/18 11/27/18 11/28/18 05:59 05:59 05:59 Intake Total 50 Output Total 750 600 Balance -700 -600 - Physical Exam Constitutional: no apparent distress, appears nourished Eyes: PERRL, anicteric sclera Ears, Nose, Mouth, Throat: moist mucous membranes, ears appear normal Cardiovascular: regular rate and rhythym, no murmur, rub, or gallop Respiratory: no respiratory distress, no rales or rhonchi, clear to auscultation Gastrointestinal: normoactive bowel sounds, soft, non-tender abdomen Genitourinary: no bladder fullness, no bladder tenderness Skin: warm, normal color Musculoskeletal: generalized weakness Neurologic: other (knows she is in a hospital, but is nonverbal mostly. ) Psychiatric: encephalopathic Lymph, Heme, Immunologic: no cervical LAD ICD10 Worksheet Patient Problems: Problems Problem Status Onset CVA (cerebral vascular accident) Acute Weakness Acute
--- NOTE | 2018-11-27 15:51 | ASMTCMCOM ---
CM Note CM Note Notes: Received call back from [facility] at [facility], they have declined pt. They feel she is more appropriate for SNF, CM left message with Son. DC Plan: SNF + out pt palliative ([facility]) Date Signed: 11/27/2018 03:51 PM Electronically Signed By:Malou Baer RN
--- NOTE | 2018-11-27 16:22 | SOAPPROG ---
SOAP Progress Note Assessment/Plan: Assessment:Plan: see full dictated consult 83 y/o female with CVA, CAD admitted with prob UTI and now possible DRESS increased ALKphos and also mild ALT/AST c/w= drug induced hepatitis from Ampicillin/sulbactam abx now changed expect alkp to go up for few more days then plateau if bili goes up I would repeat RUQ sonogram f/u bc'x which are NTD Yassine Middleton MD [phone] 11/25/18 19:22 _ 11/26/18 13:42 1) LFT's - prob from her amoxicillin abx - trending down (even alkphos) and with no fevers today after abx changed 2) fever - none today ?DRESS? no change in plan, f/u cx's, follow LFT's 11/27/18 16:18 1) LFT's - minimal decrease today in ALT/AST, alkp is 1 point higher, expect they will trend down, suspect reaction to amoxicillin abx 2) fever - none today, prob from DRESS 3) mental status - more alert today, opens eyes, responds appropriately I will sign off as I am going off inpt service and I think there is little more to offer from gi viewpoint I will have Dr. Schneider look at chart via computer If needed please recall prn Subjective: cc- abnl LFT's, fever, possible DRESS pt more awake and alert today still unable to communicate well but responds appropriately Objective: Vital Signs Temp Pulse Resp BP Pulse Ox 36.5 C 61 16 113/55 L 95 11/27/18 12:00 11/27/18 12:00 11/27/18 12:00 11/27/18 12:00 11/27/18 12:00 Laboratory Results 11/27/18 05:00 11/27/18 05:00 11/26/18 11/27/18 11/28/18 05:59 05:59 05:59 Intake Total 50 Output Total 750 600 Balance -700 -600 alert CTA anteriorly S1S2 +BS, soft mild tenderness (better than yesterday), no r/g Laboratory Tests 11/25/18 11/26/18 11/27/18 05:12 04:45 05:00 AST 115 H 79 H 76 H ALT 190 H 135 H 129 H Alkaline Phosphatase 860 H 577 H 578 H ICD10 Worksheet Patient Problems: Problems Problem Status Onset CVA (cerebral vascular accident) Acute Weakness Acute
--- NOTE | 2018-11-27 16:55 | ASMTCMCOM ---
CM Note CM Note Notes: Received call from pt's son, he would like referral sent to [facility] and they can accept. DC Plan: SNF/ [facility] + [facility] out pt Date Signed: 11/27/2018 04:27 PM Electronically Signed By:Malou Baer RN
[2018-11-28] MEDS: MEROPENEM 1 GM in NS 100 ML IV SCH ×2 (01:58→09:15)
[2018-11-28] MEDS: NYSTATIN SUSP 500000 UNIT/5 ML UD LIQ PO SCH ×4 (05:11→20:23)
[2018-11-28] MEDS: LEVOTHYROXINE 25 MCG TAB PO SCH (05:11)
[2018-11-28] MEDS: VALSARTAN 160 MG TAB PO SCH (08:28)
[2018-11-28] MEDS: DOCUSATE SODIUM 100 MG CAP PO SCH (08:28)
[2018-11-28] MEDS: CITALOPRAM 20 MG TAB PO SCH (08:28)
[2018-11-28] MEDS: ASPIRIN EC 81 MG TAB PO SCH (08:28)
[2018-11-28] MEDS: hydrALAZINE 10 MG TAB PO PRN ×2 (08:28→16:57)
[2018-11-28] MEDS: CARVEDILOL 6.25 MG TAB PO SCH ×2 (08:28→17:00)
[2018-11-28] MEDS: CLOPIDOGREL BISULFATE 75 MG TAB PO SCH (08:29)
[2018-11-28] MEDS: FUROSEMIDE 20 MG TAB PO SCH (08:29)
[2018-11-28] MEDS: ENOXAPARIN 40 MG/0.4 ML SYR SC SCH (08:30)
--- NOTE | 2018-11-28 09:31 | PCMIDPN ---
Assessment/Plan: Assessment: 83-year-old woman with altered mentation and increased weakness with likely contributions from cystitis and possible DRESS Syndrome from amoxicillin. Continues to improve with improved alertness and mentation. Whilst amoxicillin as allergy for as the most likely cause for her febrile syndrome with mild transaminase elevation and eosinophilia. Will continue to follow CBC with differential to ensure her eosinophil count returns to normal. 1. Altered mentation possible contribution from cystitis; resolved 2. High-grade fever, suspect DRESS Syndrome and/or amoxicillin reaction; resolved 3. Acute eosinophilia, mild; started on/about 11/17/2018; increasing 4. Transaminitis, acute and mild; started on/about 11/19/2018; improved 5. DNR status 6. History of LAD stent 11/06/2018 due to NSTEMI 7. History of stroke, on/about 11/04/2018 8. Acute lymphopenia; resolved Plan: 1. Continue meropenem for a total of 72 hr; stop date placed for 11/28 at approximately 5:30 p.m. 2. CBC with differential and UA ordered for 11.29 3. Reviewed in detail potential side effects of beta-lactam antibiotics with family to include: allergy, rash, nausea, antibiotic-associated diarrhea, Clostridioides difficile colitis. 4. Listed amoxicillin as allergy Amaury Kaminski MD Infectious Diseases 11/28/18 09:29 Subjective: No for further measured fevers. She is more awake and interactive today and displacing conversation. No abdominal pain or diarrhea. No rashes or pruritic cutaneous areas. Overall states she feels better. Objective: Vital Signs Temp Pulse Resp BP Pulse Ox 36.4 C 63 18 185/92 H 95 11/28/18 08:00 11/28/18 08:28 11/28/18 08:00 11/28/18 08:28 11/28/18 08:00 Laboratory Results 11/27/18 05:00 11/28/18 04:55 11/27/18 11/28/18 11/29/18 05:59 05:59 05:59 Intake Total 100 Output Total 600 400 Balance -600 -300 Microbiology 11/21/18 23:11 Nasal, Sinus - Swab Respiratory Panel (PCR) - Final No Organism Detected By Pcr 11/21/18 18:29 Blood Blood Culture - Final 11/21/18 18:00 Blood Blood Culture - Final 11/21/18 03:00 Urine,Clean Catch Urine Culture - Final Pseudomonas Aeruginosa Proteus Mirabilis Escherichia Coli Esbl Enterococcus Faecalis 11/25/18 21:58 Blood Blood Culture - Preliminary 11/25/18 21:50 Blood Blood Culture - Preliminary 11/24/18 19:55 Blood Blood Culture - Preliminary 11/24/18 19:50 Blood Blood Culture - Preliminary Laboratory Tests 11/22/18 11/23/18 11/26/18 04:51 04:50 04:45 Absolute Eos (auto) 0.43 H 1.01 H Creatinine ALT 135 H 11/27/18 11/27/18 11/28/18 05:00 05:00 04:55 Absolute Eos (auto) 1.69 H Creatinine 0.4 L ALT 129 H 101 H Ongoing monitoring for antimicrobial toxicity with: CBC, BMP, interval historical information, and interval physical exam. - Physical Exam General Appearance: no apparent distress, non-toxic EENT: No scleral icterus Respiratory: lungs clear, No respiratory distress, No accessory muscle use, No crackles Neck: full range of motion, supple, No limited range of motion Cardiac/Chest: regular rate, rhythm, No bradycardia, No tachycardia, No diastolic murmur, No systolic murmur Extremities: No swelling Abdomen: non-tender, soft, No distended, No guarding Skin: No erythema Neuro/Psych: alert, oriented x 3, depressed affect, No confused - Time Spent With Patient Time Spent with Patient: greater than 25 minutes Time Spent with Patient: Greater than 25 minutes spent on this patients care, greater than 50% of time spent counseling, educating, and coordinating care regarding the above mentioned plan. ICD10 Worksheet Patient Problems: Problems Problem Status Onset CVA (cerebral vascular accident) Acute Weakness Acute
[2018-11-28] MEDS: POTASSIUM CL 10 MEQ TAB PO ONE ×2 (10:28→12:56)
[2018-11-28] MEDS ORDERED: POTASSIUM CL 20 MEQ PKT PO ONE (12:15)
--- NOTE | 2018-11-28 14:02 | HOSPPROG ---
Hospitalist Progress Note Assessment/Plan: 83 year old female transferred from inpatient rehab where she had been admitted after suffering a CVA and NSTEMI with fever, AMS, transaminitis and possible cystitis. *fever/poss DRESS SYNDROME or cystitis -blood cx NGTD -on Meropenem, stop after today, redraw cultures after stopping -was having persistent fevers-no fevers for 24hours now *transaminitis -possibly due to DRESS -ultrasound shows CBD slightly dilated -LFts starting to come down -GI feels this is due to drug reaction, recommends stopping offending agent and monitoring LFTs *tachypnea -not requiring O2 but use of accessory muscles w talking -reviewed imaging from earlier this month, CTA shows no PE (this was done on )-showed small left pleural effusion -much calmer today with no hypoxia. *htn, uncontrolled - resume her Valsartan and Coreg -prn Hydralazine *Pulmonary edema -improved -on room air *acute diastolic CHF -dose of IV Lasix given yesterday -echo shows mild apical hypokinesis, grade 2 diastolic dysfunction -will place her on daily oral Lasix, monitor renal function, and lytes *hypokalemia -stable *deconditioning -PT and OT *hyponatremia -follow/repeat labs in a.m. -slightly worse today, check urine sodium *normocytic anemia *recent stroke w residual left sided weakness -PT and OT -patient is not very verbal today and moves her head back and forth/ did a repeat CT of her head today which showed nothing acute *CAD w LAD stent placed a [facility] on November 06 (NSTEMI) -plavix *concern for situational depression -had a stroke, [place], and then rehospitalized. Patient and family would like to try an antidepressant. She also lost her to pancreatic cancer. Celexa low dose started. *plan:palliative met with patient. She is not wanting to eat or drink. They would like to try treatment for several more days to see if she improves; if she continues not eating or drinking; then they will further discuss other options. family wants patient to go back to inpatient rehab when acute symptoms resolved. Subjective: slightly more conversant today. Objective: Vital Signs Temp Pulse Resp BP Pulse Ox 36.4 C 65 18 151/80 H 96 11/28/18 12:21 11/28/18 12:21 11/28/18 12:21 11/28/18 12:21 11/28/18 12:21 Laboratory Results 11/27/18 05:00 11/28/18 04:55 11/27/18 11/28/18 11/29/18 05:59 05:59 05:59 Intake Total 100 Output Total 600 400 Balance -600 -300 - Physical Exam Constitutional: no apparent distress, appears nourished, not in pain Eyes: PERRL, anicteric sclera, EOMI Ears, Nose, Mouth, Throat: moist mucous membranes, hearing normal, ears appear normal, no oral mucosal ulcers Cardiovascular: regular rate and rhythym, no murmur, rub, or gallop Respiratory: no respiratory distress, no rales or rhonchi, clear to auscultation Gastrointestinal: normoactive bowel sounds, soft, non-tender abdomen, no palpable masses Genitourinary: no bladder fullness, no bladder tenderness, no renal bruits Skin: no rashes or abrasions, no fluctuance, no induration Musculoskeletal: generalized weakness Neurologic: other (No focal deficits. able to answer questions but only in small one word answers. ) Psychiatric: encephalopathic Lymph, Heme, Immunologic: no cervical LAD, no supraclavicular LAD ICD10 Worksheet Patient Problems: Problems Problem Status Onset CVA (cerebral vascular accident) Acute Weakness Acute
[2018-11-29] MEDS: hydrALAZINE 10 MG TAB PO PRN (04:25)
[2018-11-29] MEDS: LEVOTHYROXINE 25 MCG TAB PO SCH (05:07)
[2018-11-29] MEDS: NYSTATIN SUSP 500000 UNIT/5 ML UD LIQ PO SCH ×5 (05:07→20:45)
[2018-11-29 05:30] LABS: PLATELET COUNT 324 10^3/uL (150-400)
[2018-11-29] MEDS ORDERED: POTASSIUM CL 10 MEQ TAB PO ONE ×2 (08:48→20:14)
[2018-11-29] MEDS: ASPIRIN EC 81 MG TAB PO SCH (08:52)
[2018-11-29] MEDS: CITALOPRAM 20 MG TAB PO SCH (08:52)
[2018-11-29] MEDS: DOCUSATE SODIUM 100 MG CAP PO SCH (08:52)
[2018-11-29] MEDS: CARVEDILOL 6.25 MG TAB PO SCH ×2 (08:52→18:09)
[2018-11-29] MEDS: CLOPIDOGREL BISULFATE 75 MG TAB PO SCH (08:52)
[2018-11-29] MEDS: FUROSEMIDE 20 MG TAB PO SCH (08:52)
[2018-11-29] MEDS: ENOXAPARIN 40 MG/0.4 ML SYR SC SCH (08:53)
[2018-11-29] MEDS ORDERED: MAGNESIUM SULF 1 GM/DEXTROSE 100 ML IV ONE (10:20)
[2018-11-29] MEDS: VALSARTAN 160 MG TAB PO SCH (10:32)
[2018-11-29] MEDS ORDERED: NS 250 ML IV ONE (11:59)
--- NOTE | 2018-11-29 12:10 | PCMIDPN ---
Assessment/Plan: Assessment: 83-year-old woman with altered mentation and increased weakness with likely contributions from cystitis and possible DRESS Syndrome from amoxicillin. Laboratory abnormalities are all resolved or near resolved. This is clearly a side effect from amoxicillin which might be DRESS but does not necessarily for fill all diagnostic criteria. In any event amoxicillin listed as an allergy due to this constellation of side effects. 1. Altered mentation possible contribution from cystitis; resolved 2. High-grade fever, suspect DRESS Syndrome and/or amoxicillin reaction; resolved 3. Acute eosinophilia, mild; started on/about 11/17/2018; improved and nearly back to normal 4. Transaminitis, acute and mild; started on/about 11/19/2018; improved and nearly back to normal 5. DNR status 6. History of LAD stent 11/06/2018 due to NSTEMI 7. History of stroke, on/about 11/04/2018 8. Acute lymphopenia; resolved Plan: 1. No further systemic antimicrobials warranted 2. Amoxicillin listed as an allergy due to possible DRESS with clear side effects from amoxicillin driving her acute illness 3. ID will follow peripherally please call if any new concerns arise Amaury Kaminski MD Infectious Diseases 11/29/18 12:08 Subjective: Continues without any further fevers. All laboratory abnormalities present on admission are now correcting. Discussed in detail with son at bedside as patient was sleeping comfortably. He states that she is becoming more defiant in refusing food and some cares. Objective: Vital Signs Temp Pulse Resp BP Pulse Ox 36.6 C 60 18 107/58 L 97 11/29/18 11:24 11/29/18 11:24 11/29/18 11:24 11/29/18 11:24 11/29/18 11:24 Laboratory Results 11/29/18 04:56 11/29/18 04:56 11/28/18 11/29/18 11/30/18 05:59 05:59 05:59 Intake Total 100 100 Output Total 400 900 Balance -300 -800 Microbiology 11/21/18 23:11 Nasal, Sinus - Swab Respiratory Panel (PCR) - Final No Organism Detected By Pcr 11/25/18 21:58 Blood Blood Culture - Preliminary 11/25/18 21:50 Blood Blood Culture - Preliminary 11/24/18 19:55 Blood Blood Culture - Preliminary 11/24/18 19:50 Blood Blood Culture - Preliminary Laboratory Tests 11/22/18 11/23/18 11/27/18 04:51 04:50 05:00 WBC Hgb Plt Count Absolute Eos (auto) 0.43 H 1.01 H AST 76 H ALT 129 H Alkaline Phosphatase 578 H Total Protein 6.0 L Albumin 2.8 L Urine WBC 11/27/18 11/28/18 11/28/18 05:00 04:55 10:40 WBC Hgb Plt Count Absolute Eos (auto) 1.69 H AST 44 ALT 101 H Alkaline Phosphatase 535 H Total Protein 6.1 L Albumin 2.8 L Urine WBC 1-3 11/29/18 11/29/18 04:56 04:56 WBC 6.35 Hgb 12.8 Plt Count 324 Absolute Eos (auto) 0.44 H AST 33 ALT 87 H Alkaline Phosphatase 496 H Total Protein 6.6 Albumin 3.2 L Urine WBC - Physical Exam General Appearance: no apparent distress, non-toxic Respiratory: No respiratory distress, No accessory muscle use Neuro/Psych: other (Sleeping comfortably and did not wake) ICD10 Worksheet Patient Problems: Problems Problem Status Onset CVA (cerebral vascular accident) Acute Weakness Acute
--- NOTE | 2018-11-29 14:08 | HOSPPROG ---
Hospitalist Progress Note Assessment/Plan: 83 year old female transferred from inpatient rehab where she had been admitted after suffering a CVA and NSTEMI with fever, AMS, transaminitis and possible cystitis. *fever/poss DRESS SYNDROME or cystitis -LFTs downtrending, -No further fevers -ID, GI signed off. *transaminitis -possibly due to DRESS -ultrasound shows CBD slightly dilated -LFts starting to come down -GI feels this is due to drug reaction, recommends stopping offending agent and monitoring LFTs *tachypnea -not requiring O2 but use of accessory muscles w talking -reviewed imaging from earlier this month, CTA shows no PE (this was done on )-showed small left pleural effusion -much calmer today with no hypoxia. *htn, uncontrolled - resume her Valsartan and Coreg -prn Hydralazine *Pulmonary edema -improved -on room air *acute diastolic CHF -echo shows mild apical hypokinesis, grade 2 diastolic dysfunction -will place her on daily oral Lasix, monitor renal function, and lytes *hypokalemia -stable *deconditioning -PT and OT *hyponatremia Worse today, looks dry -trial of fluids and repeat later today. hold lasix as well. -repeat urine sodium in am, along iwth serum sodium and osm. *normocytic anemia *recent stroke w residual left sided weakness -PT and OT -patient not very verbal. *CAD w LAD stent placed a [facility] on November 06 (NSTEMI) -plavix *concern for situational depression -had a stroke, [place], and then rehospitalized. Patient and family would like to try an antidepressant. She also lost her to pancreatic cancer. Celexa low dose started. *plan:patient not taking very good po. Calorie count in progress. discussed with family the options, placing a peg tube, vs comfort if she does not start eating more. THey would like to discuss with the patient more and try to come up with a plan. Subjective: minimally responsive. does not look uncomfortable. Objective: Vital Signs Temp Pulse Resp BP Pulse Ox 36.6 C 60 18 107/58 L 97 11/29/18 11:24 11/29/18 11:24 11/29/18 11:24 11/29/18 11:24 11/29/18 11:24 Laboratory Results 11/29/18 04:56 11/28/18 11/29/18 11/30/18 05:59 05:59 05:59 Intake Total 100 100 Output Total 400 900 Balance -300 -800 - Physical Exam Constitutional: no apparent distress, appears nourished, not in pain Eyes: PERRL, anicteric sclera, EOMI Ears, Nose, Mouth, Throat: moist mucous membranes, hearing normal, ears appear normal, no oral mucosal ulcers Cardiovascular: regular rate and rhythym, no murmur, rub, or gallop Respiratory: no respiratory distress, no rales or rhonchi, clear to auscultation Gastrointestinal: normoactive bowel sounds, soft, non-tender abdomen, no palpable masses Genitourinary: no bladder fullness, no bladder tenderness, no renal bruits Skin: no rashes or abrasions, no fluctuance, no induration Musculoskeletal: generalized weakness Neurologic: other (minimally responsive. moves all extremities. ) Psychiatric: encephalopathic Lymph, Heme, Immunologic: no cervical LAD, no supraclavicular LAD ICD10 Worksheet Patient Problems: Problems Problem Status Onset CVA (cerebral vascular accident) Acute Weakness Acute
--- NOTE | 2018-11-29 16:34 | ASMTCMCOM ---
CM Note CM Note Notes: CM discussed with Calin ESPARZA, he reports patient continues to refuse food and drink, she has shared with her son she does not want to eat. ID consulted today and discussed plan with son. Discharge plan continues to be [facility] and [facility], to contact [place] with [facility] when patient is ready to discharge. CM to follow. D/C Plan: SNF[facility]. Date Signed: 11/29/2018 04:33 PM Electronically Signed By:Lucy Victor
[2018-11-29] MEDS ORDERED: SODIUM CL 23.4% 308 MEQ in WATER FOR INJECTION,STERILE 1,000 ML IV SCH (22:30)
[2018-11-30] MEDS: hydrALAZINE 10 MG TAB PO PRN ×3 (00:05→20:23)
[2018-11-30] MEDS: NYSTATIN SUSP 500000 UNIT/5 ML UD LIQ PO SCH ×4 (05:46→20:24)
[2018-11-30] MEDS: LEVOTHYROXINE 25 MCG TAB PO SCH (05:46)
[2018-11-30] MEDS ORDERED: SODIUM CHLORIDE 1,000 MG TAB PO SCH (08:00)
[2018-11-30] MEDS ORDERED: POTASSIUM CL 10 MEQ TAB PO ONE (08:15)
[2018-11-30] MEDS: DOCUSATE SODIUM 100 MG CAP PO SCH (08:58)
[2018-11-30] MEDS: CITALOPRAM 20 MG TAB PO SCH (08:58)
[2018-11-30] MEDS: VALSARTAN 160 MG TAB PO SCH (08:59)
[2018-11-30] MEDS: CLOPIDOGREL BISULFATE 75 MG TAB PO SCH (08:59)
[2018-11-30] MEDS: ASPIRIN EC 81 MG TAB PO SCH (08:59)
[2018-11-30] MEDS: CARVEDILOL 6.25 MG TAB PO SCH (08:59)
[2018-11-30] MEDS: ENOXAPARIN 40 MG/0.4 ML SYR SC SCH (08:59)
--- NOTE | 2018-11-30 12:26 | HOSPPROG ---
Hospitalist Progress Note Assessment/Plan: 83 year old female transferred from inpatient rehab where she had been admitted after suffering a CVA and NSTEMI with fever, AMS, transaminitis and possible cystitis. *fever/poss DRESS SYNDROME or cystitis -LFTs downtrending, -No further fevers -ID, GI signed off. *transaminitis -possibly due to DRESS -ultrasound shows CBD slightly dilated -LFts starting to come down -GI feels this is due to drug reaction, recommends stopping offending agent and monitoring LFTs *tachypnea -not requiring O2 but use of accessory muscles w talking -reviewed imaging from earlier this month, CTA shows no PE (this was done on )-showed small left pleural effusion -much calmer today with no hypoxia. *htn, uncontrolled - stop coreg as she is not taking po. -add lopressor 5mg IV Q6 with hold parameters -prn Hydralazine *Pulmonary edema -improved -on room air *acute diastolic CHF -echo shows mild apical hypokinesis, grade 2 diastolic dysfunction -stop lasix, with such poor po intake. *hypokalemia -stable *deconditioning -PT and OT *hyponatremia Responded to hypertonic saline. -will restart at 25cc hour, goal correction 8 points in 24 hours. -Goal for tomorrow would be around 133-135 *normocytic anemia *recent stroke w residual left sided weakness -PT and OT -patient not very verbal. *CAD w LAD stent placed a [facility] on November 06 (NSTEMI) -plavix *concern for situational depression -had a stroke, [place], and then rehospitalized. Patient and family would like to try an antidepressant. She also lost her to pancreatic cancer. Celexa low dose started. *plan:patient continues to refuse PO. Discussed with family, they are undecided how to proceed. I strongly recommended against PEG tube placement. They will meet with palliative care today. Subjective: patient whimpering. Objective: Vital Signs Temp Pulse Resp BP Pulse Ox 36.6 C 72 18 183/91 H 96 11/30/18 08:00 11/30/18 08:00 11/30/18 08:00 11/30/18 08:00 11/30/18 08:00 Microbiology 11/24/18 19:55 Blood Culture - Final Blood 11/24/18 19:50 Blood Culture - Final Blood Laboratory Results 11/29/18 04:56 11/30/18 09:02 11/29/18 11/30/18 12/01/18 05:59 05:59 05:59 Intake Total 100 120 Output Total 900 580 Balance -800 -460 - Physical Exam Constitutional: chronically ill appearing Eyes: PERRL, anicteric sclera, EOMI Ears, Nose, Mouth, Throat: moist mucous membranes, hearing normal, ears appear normal, no oral mucosal ulcers Cardiovascular: regular rate and rhythym, no murmur, rub, or gallop Respiratory: no respiratory distress, no rales or rhonchi, clear to auscultation Gastrointestinal: normoactive bowel sounds, soft, non-tender abdomen, no palpable masses Genitourinary: no bladder fullness, no bladder tenderness, no renal bruits Skin: no rashes or abrasions, no fluctuance, no induration Neurologic: other (Nods head in response to questions, seems oriented but refuses to answer. ) Psychiatric: encephalopathic Lymph, Heme, Immunologic: no cervical LAD, no supraclavicular LAD ICD10 Worksheet Patient Problems: Problems Problem Status Onset CVA (cerebral vascular accident) Acute Weakness Acute
[2018-11-30] MEDS: SODIUM CL 23.4% 308 MEQ in WATER FOR INJECTION,STERILE 1,000 ML IV SCH (15:36)
[2018-11-30] MEDS: METOPROLOL TARTRATE 5 MG/5 ML INJ IVP SCH ×2 (18:41→23:47)
[2018-12-01] MEDS: METOPROLOL TARTRATE 5 MG/5 ML INJ IVP SCH ×4 (05:29→23:46)
[2018-12-01] MEDS: LEVOTHYROXINE 25 MCG TAB PO SCH (05:29)
[2018-12-01] MEDS: hydrALAZINE 10 MG TAB PO PRN ×3 (05:29→19:49)
[2018-12-01] MEDS: NYSTATIN SUSP 500000 UNIT/5 ML UD LIQ PO SCH ×4 (05:30→19:50)
[2018-12-01] MEDS ORDERED: POTASSIUM CL 10 MEQ TAB PO ONE ×2 (08:50→19:18)
[2018-12-01] MEDS: CITALOPRAM 20 MG TAB PO SCH (09:12)
[2018-12-01] MEDS: CLOPIDOGREL BISULFATE 75 MG TAB PO SCH (09:12)
[2018-12-01] MEDS: VALSARTAN 160 MG TAB PO SCH (09:13)
[2018-12-01] MEDS: ASPIRIN EC 81 MG TAB PO SCH (09:13)
[2018-12-01] MEDS: ENOXAPARIN 40 MG/0.4 ML SYR SC SCH (09:13)
[2018-12-01] MEDS: DOCUSATE SODIUM 100 MG CAP PO SCH (09:14)
--- NOTE | 2018-12-01 14:24 | ASMTCMCOM ---
CM Note CM Note Notes: Spoke with pt's RN, hospitalist and [facility] staff. Pt had impromptu palliative meeting today with hospitalist, pharmacy grad intern and [facility] and son ([email or web address]) communicated that PEG tube is contrary to pt's goals. (See palliative note) Palliative care meeting planned for tomorrow with [facility] including pt's other son to discuss possibility of hospice either in home or at [facility] since she is still refusing to eat and nearing end of life. Updates sent to [facility]. CM to follow. D/C Plan: TBD Date Signed: 12/01/2018 02:23 PM Electronically Signed By:Jesusita Ramos
--- NOTE | 2018-12-01 15:08 | HOSPPROG ---
Hospitalist Progress Note Assessment/Plan: 83 year old female transferred from inpatient rehab where she had been admitted after suffering a CVA and NSTEMI with fever, AMS, transaminitis and possible cystitis. *fever/poss DRESS SYNDROME or cystitis -resolved essentiallly -LFTs downtrending, -No further fevers -ID, GI signed off. *transaminitis -possibly due to DRESS -ultrasound shows CBD slightly dilated -LFts normalizing -GI feels this is due to drug reaction, recommends stopping offending agent and monitoring LFTs *tachypnea -not requiring O2 but use of accessory muscles w talking -reviewed imaging from earlier this month, CTA shows no PE (this was done on )-showed small left pleural effusion -much calmer today with no hypoxia. *htn, uncontrolled - stop coreg as she is not taking po. -add lopressor 5mg IV Q6 with hold parameters -prn Hydralazine -cont valsartan if she will take it. *Pulmonary edema -improved -on room air *acute diastolic CHF -echo shows mild apical hypokinesis, grade 2 diastolic dysfunction -stop lasix, with such poor po intake. *hypokalemia -stable *deconditioning -PT and OT *hyponatremia Responded to hypertonic saline. -restart hypertonic saline. Na is 131 today. *normocytic anemia *recent stroke w residual left sided weakness -PT and OT -patient not very verbal. *CAD w LAD stent placed a [facility] on November 06 (NSTEMI) -plavix *concern for situational depression -had a stroke, [place], and then rehospitalized. Patient and family would like to try an antidepressant. She also lost her to pancreatic cancer. Celexa low dose started. *plan:Palliative care and I met with family today. Plan to wait for son to arrive tomorrow from [place], plan to discuss possible hospice. family is hopeful she will start eating more but they have agreed no feeding tubes. Subjective: patient in room whimpering. Objective: Vital Signs Temp Pulse Resp BP Pulse Ox 36.3 C 69 24 H 185/92 H 95 12/01/18 12:00 12/01/18 12:00 12/01/18 12:00 12/01/18 12:00 12/01/18 12:00 Microbiology 11/25/18 21:50 Blood Culture - Final Blood 11/25/18 21:58 Blood Culture - Final Blood Laboratory Results 11/29/18 04:56 12/01/18 11:45 11/30/18 12/01/18 12/02/18 05:59 05:59 05:59 Intake Total 120 70 Output Total 580 200 Balance -460 -130 - Physical Exam Constitutional: no apparent distress, appears nourished, not in pain, chronically ill appearing Eyes: PERRL, anicteric sclera, EOMI Ears, Nose, Mouth, Throat: moist mucous membranes, hearing normal, ears appear normal, no oral mucosal ulcers Cardiovascular: regular rate and rhythym, no murmur, rub, or gallop Respiratory: no respiratory distress, no rales or rhonchi, clear to auscultation Gastrointestinal: normoactive bowel sounds, soft, non-tender abdomen, no palpable masses Genitourinary: no bladder fullness, no bladder tenderness, no renal bruits Skin: no rashes or abrasions, no fluctuance, no induration Musculoskeletal: generalized weakness Neurologic: other (nods in response to questions, non verbal. ) Psychiatric: encephalopathic Lymph, Heme, Immunologic: no cervical LAD, no supraclavicular LAD ICD10 Worksheet Patient Problems: Problems Problem Status Onset CVA (cerebral vascular accident) Acute Weakness Acute
[2018-12-01] MEDS: SODIUM CL 23.4% 308 MEQ in WATER FOR INJECTION,STERILE 1,000 ML IV SCH (21:16)
[2018-12-02] MEDS: METOPROLOL TARTRATE 5 MG/5 ML INJ IVP SCH ×4 (05:23→23:27)
[2018-12-02] MEDS: LEVOTHYROXINE 25 MCG TAB PO SCH (05:23)
[2018-12-02] MEDS: NYSTATIN SUSP 500000 UNIT/5 ML UD LIQ PO SCH ×4 (05:23→20:09)
[2018-12-02] MEDS ORDERED: POTASSIUM CL 10 MEQ TAB PO ONE (07:32)
[2018-12-02] MEDS: hydrALAZINE 10 MG TAB PO PRN (08:16)
[2018-12-02] MEDS: VALSARTAN 160 MG TAB PO SCH (08:16)
[2018-12-02] MEDS: ASPIRIN EC 81 MG TAB PO SCH (08:17)
[2018-12-02] MEDS: CITALOPRAM 20 MG TAB PO SCH (08:17)
[2018-12-02] MEDS: DOCUSATE SODIUM 100 MG CAP PO SCH (08:17)
[2018-12-02] MEDS: ENOXAPARIN 40 MG/0.4 ML SYR SC SCH (08:17)
[2018-12-02] MEDS: CLOPIDOGREL BISULFATE 75 MG TAB PO SCH (08:17)
[2018-12-02] MEDS: hydrALAZINE 20 MG/ML VIAL IVP PRN (10:05)
[2018-12-02] MEDS ORDERED: MAGNESIUM SULF 1 GM/DEXTROSE 100 ML IV ONE (15:32)
--- NOTE | 2018-12-02 16:12 | ASMTCMCOM ---
CM Note CM Note Notes: Received a message from Ifeanyi Alba that patient may be ready for discharge tomorrow. Spoke with Rossi from [facility] and they do have a bed available and can take the patient tomorrow. Discharge plan is patient to [facility] tomorrow with [facility] hospice support. IRLANDA will foillow. Date Signed: 12/02/2018 04:11 PM Electronically Signed By:Yoon Ledbetter LCSW
--- NOTE | 2018-12-02 16:25 | HOSPPROG ---
Hospitalist Progress Note Assessment/Plan: 83 year old female transferred from inpatient rehab where she had been admitted after suffering a CVA and NSTEMI with fever, AMS, transaminitis and possible cystitis. *fever/poss DRESS SYNDROME or cystitis-resolved -resolved essentiallly -LFTs downtrending, -No further fevers -ID, GI signed off. *transaminitis -possibly due to DRESS -ultrasound shows CBD slightly dilated -LFts normalizing -GI feels this is due to drug reaction, recommends stopping offending agent and monitoring LFTs *tachypnea -not requiring O2 but use of accessory muscles w talking -reviewed imaging from earlier this month, CTA shows no PE (this was done on )-showed small left pleural effusion -much calmer today with no hypoxia. *htn, uncontrolled patient family decided to move forward with hospice. on comfort care. *Pulmonary edema -improved -on room air *acute diastolic CHF -echo shows mild apical hypokinesis, grade 2 diastolic dysfunction -stop lasix, with such poor po intake. *hypokalemia -stable *deconditioning -PT and OT *hyponatremia SIADH, or cerebral salt wasting -no further agressive treatment. *normocytic anemia *recent stroke w residual left sided weakness -PT and OT -patient not very verbal. *CAD w LAD stent placed a [facility] on November 06 (NSTEMI) -stop plavix *concern for situational depression -had a stroke, [place], and then rehospitalized. Patient and family would like to try an antidepressant. She also lost her to pancreatic cancer. Celexa low dose started. *plan:met with family today, decision made to move forward with hospice. Plan to transfer to [facility] with [facility] hospice, hopefully tomorrow. Subjective: patient whimpering. Objective: Vital Signs Temp Pulse Resp BP Pulse Ox 36.7 C 72 20 145/76 H 94 12/02/18 11:45 12/02/18 11:45 12/02/18 11:45 12/02/18 14:18 12/02/18 11:45 Laboratory Results 11/29/18 04:56 12/02/18 06:00 12/01/18 12/02/18 12/03/18 05:59 05:59 05:59 Intake Total 70 735 Output Total 200 1250 Balance -130 -515 - Physical Exam Constitutional: chronically ill appearing, cachectic Eyes: PERRL, anicteric sclera, EOMI Ears, Nose, Mouth, Throat: moist mucous membranes, hearing normal, ears appear normal, no oral mucosal ulcers Cardiovascular: regular rate and rhythym, no murmur, rub, or gallop Respiratory: no respiratory distress, no rales or rhonchi, clear to auscultation Gastrointestinal: normoactive bowel sounds, soft, non-tender abdomen, no palpable masses Genitourinary: no bladder fullness, no bladder tenderness, no renal bruits Skin: no rashes or abrasions, no fluctuance, no induration Musculoskeletal: full muscle strength, no muscle tenderness, normal joint ROM Neurologic: other (only whimpers) Psychiatric: encephalopathic Lymph, Heme, Immunologic: no cervical LAD, no supraclavicular LAD ICD10 Worksheet Patient Problems: Problems Problem Status Onset CVA (cerebral vascular accident) Acute Weakness Acute
[2018-12-03] MEDS: METOPROLOL TARTRATE 5 MG/5 ML INJ IVP SCH ×2 (05:21→12:11)
[2018-12-03] MEDS: LEVOTHYROXINE 25 MCG TAB PO SCH (05:21)
[2018-12-03] MEDS: NYSTATIN SUSP 500000 UNIT/5 ML UD LIQ PO SCH ×2 (05:21→12:11)
[2018-12-03] MEDS: ASPIRIN EC 81 MG TAB PO SCH (09:14)
[2018-12-03] MEDS: VALSARTAN 160 MG TAB PO SCH (09:14)
[2018-12-03] MEDS: CITALOPRAM 20 MG TAB PO SCH (09:14)
[2018-12-03] MEDS: DOCUSATE SODIUM 100 MG CAP PO SCH (09:14)
[2018-12-03] MEDS: CLOPIDOGREL BISULFATE 75 MG TAB PO SCH (09:14)
[2018-12-03] MEDS: hydrALAZINE 20 MG/ML VIAL IVP PRN (09:17)
[2018-12-03] MEDS ORDERED: MAGNESIUM HYDROXIDE 30 ML UDCUP PO PRN (09:50)
[2018-12-03] MEDS ORDERED: POLYETHYLENE GLYCOL 3350 17 GM PKT PO PRN (09:50)
[2018-12-03] MEDS ORDERED: BISACODYL 10 MG SUPP PR PRN (09:50)
[2018-12-03] MEDS ORDERED: LACTULOSE 20 GM/30 ML UDCUP PO PRN (09:50)
--- NOTE | 2018-12-03 11:07 | PDIAF ---
- Diagnosis Code Status: Do Not Resuscitate - Medication Management Discharge Medications: electronically signed and located in the Home Medication List. - Orders Services needed: Registered Nurse Isolation Type: Contact Isolation Diet Recommendation: no restrictions on diet Diet Texture: Regular Texture Diet - Follow Up Care Current Providers and Referrals: Jesusita Li MD [Primary Care Provider] -
--- NOTE | 2018-12-03 11:44 | ASMTLACE ---
[facility]ACE Length of stay for Answers: 7-13 days current admission Acuity / Level of Answers: Yes Care: Did the patient have an inpatient admission? Comorbidities - select Answers: Cerebrovascular disease all that apply (CVA, TIA, aneurysms, vasc ular dementia) Coronary Artery Disease Other Notes: HTN; Hypothyroid # of Emergency department Answers: 1-2 visits in the last 6 months Score: 13 Date Signed: 12/03/2018 11:43 AM Electronically Signed By:Mayra Smith
[2018-12-03 12:10] VITALS: BP 162/73
--- NOTE | 2018-12-03 13:31 | ASDISCHSUM ---
Discharge Information Plan Status:Hospice-SNF Medically Cleared to Leave: Discharge Date: D/C Disposition: [facility] D/C Disposition[facility] Projected Discharge Date:12/02/2018 11:00 AM Transportation at D/C: Discharge Delay Reason: Follow-Up Date:12/02/2018 11:00 AM Discharge Slot: Final Diagnosis: Placement Information [facility] Referral ID:[id number] Provider Name: Address 1: Phone Number: Address 2: Fax Number: City: Selection Factors: State: Referral Type:Palliative Care Referral ID:[id number] Provider Name: Address 1: Phone Number: Address 2: Fax Number: City: Selection Factors: State: Referral Type:*Alf/SNF Referral ID:[id number] Provider Name:[facility] Address 1:[address] Address 2: City:[place] Selection Factors: State:[place] Referral Type:*Hospice Referral ID:[id number] Provider Name:[facility] Address 1:[address] Phone Number: Address 2: Fax Number: [facility]:[place] Selection Factors: State:[place] Patient Contact Information Contact Name:MARY ELLEN Relationship:Son Address:[address] TAL[address] Work Phone: City: [facility] Phone: [facility] Code: Email: Financial Information Financial Class:Medicare Advantage Plans Primary Plan Desc:[employer] Primary Plan Number:[id number] Secondary Plan Desc: Secondary Plan Number: Assessment Information [facility] CM Progress Note CM Note CM Note Notes: Pt admitted from [facility] with fever, AMS and UTI. Pt lives in [place] and is . [facility] is the [facility] and is to bring in a copy of it. PT and OT recommending return to [facility]. Son reports family plans to move mother to [facility] and they will communicate delay in plans to [place]. CM to follow. D/C Plan: [facility] In[facility] Date Signed: 11/22/2018 04:11 PM Electronically Signed By:Jesusita Ramos LACE [facility]ACE Length of stay for Answers: 7-13 days current admission Acuity / Level of Answers: Yes Care: Did the patient have an inpatient admission? Comorbidities - select Answers: Cerebrovascular disease all that apply (CVA, TIA, aneurysms, vasc ular dementia) Coronary Artery Disease Other Notes: HTN; Hypothyroid # of Emergency department Answers: 1-2 visits in the last 6 months Score: 13 Date Signed: 12/03/2018 11:43 AM Electronically Signed By:Mayra Smith [facility] CM Progress Note CM Note CM Note Notes: CM received call today from Angy Elaine at [facility] , who planned to come to [facility] and evaluate pt for [place]. She will delay that eval until pt returns to [facility] and requested CM notify her when that happens. Therapies still recommending [facility] for pt when she discharges and [facility] confirmed that they are saving her bed and it will be available tomorrow 11/24 at 13:00. CM to follow. D/C Plan: [facility] Date Signed: 11/23/2018 02:58 PM Electronically Signed By:Jesusita Ramos [facility] CM Progress Note CM Note CM Note Notes: Spoke with pt's son and daughter in law at length regarding hospital culture and reasonable expectations for communication with staff and hospitalist. Son would like to be called by hospitalist daily if he is not in the room, and understands that he can reach out to hospitalist and Video Game Script Writer through RN. Son would also like to be called any time day or night if there is a change in pt status or treatment plan. Pt is having significant anxiety regarding hospitalization as this is her first hospital experience. Son feels she is depressed due to medical trauma and very anxious while in the hospital, and he wants staff to be aware that her cultural predisposition is to deny her own needs and not ask for what she needs. Son asked for precision farming coordinator consult to support pt emotionally. She is Mandaen. Pt admitted here from [facility] inpatient rehab and they informed CM today that they can no longer hold her bed. She will need to re-do eval for inpt rehab before dc. Son notified. As of today, PT still recommending inpt rehab. Palliative care eval order placed today. Pall care team notified via text. They will round tomorrow. CM educated son and daughter in law on advantages of palliative care. CM to follow. DC Plan: [facility] I[facility] Rehab pending eval and bed availability Date Signed: 11/24/2018 04:41 PM Electronically Signed By:Jesusita Ramos [facility] CM Progress Note CM Note CM Note Notes: Pts case discussed w/ Delfina Fermin NP. CM met w/ pts son Ascencion (P#: [phone]). CM provided a list of inpatient rehab facilities. Ascencion states that he will take a look at them and let CM know. This is in case [facility] inpatient rehab does not have a bed available. CM spoke to Blaire w/ palliative. They will follow up with pt and Ascencion. CM to follow. Plan: Inpatient Rehab Date Signed: 11/25/2018 03:01 PM Electronically Signed By:TOM Brock [facility] IRLANDA Progress Note CM Note CM Note Notes: CM spoke to Radha w/ palliative. Pts son is agreeable to meeting w/ [facility] tomorrow. They will come tomorrow at 1PM for a meeting. Date Signed: 11/25/2018 03:22 PM Electronically Signed By:TOM Brock [facility] IRLANDA Progress Note CM Note CM Note Notes: Spoke w/[facility], they states they did not receive referral, was sent on 11/25. CM resent today. Son still wants mother to go to our inpt rehab before considering others. DC Plan: [facility] Date Signed: 11/27/2018 12:11 PM Electronically Signed By:Malou Baer RN [facility] CM Progress Note CM Note CM Note Notes: Received call back from Vinicio at [facility], they have declined pt. They feel she is more appropriate for SNF, CM left message with Son. DC Plan: SNF + out pt palliative ([facility]) Date Signed: 11/27/2018 03:51 PM Electronically Signed By:Malou Baer RN [facility] CM Progress Note CM Note CM Note Notes: Received call from pt's son, he would like referral sent to [facility] and they can accept. DC Plan: SNF/ [facility] + [facility] out pt Date Signed: 11/27/2018 04:27 PM Electronically Signed By:Malou Baer RN [facility] CM Progress Note CM Note CM Note Notes: CM discussed with Calin ESPARZA, he reports patient continues to refuse food and drink, she has shared with her son she does not want to eat. ID consulted today and discussed plan with son. Discharge plan continues to be [facility] and [facility] outpatient, to contact [place] with [facility] when patient is ready to discharge. CM to follow. D/C Plan: SNF/[facility] and [facility]. Date Signed: 11/29/2018 04:33 PM Electronically Signed By:Lucy J Pless [facility] Progress Note Note IRLANDA Note Notes: Spoke with pt's RN, hospitalist and [facility] Palliative staff. Pt had impromptu palliative meeting today with hospitalist, precision farming coordinator and [facility] and son (MDPOA) communicated that PEG tube is contrary to pt's goals. (See palliative note) Palliative care meeting planned for tomorrow with [facility] including pt's other son to discuss possibility of hospice either in home or at [facility] since she is still refusing to eat and nearing end of life. Updates sent to [facility]. IRLANDA to follow. D/C Plan: TBD Date Signed: 12/01/2018 02:23 PM Electronically Signed By:Jesusita Ramos [facility] IRLANDA Progress Note IRLANDA Bee CM Note Notes: Received a message from Ifeanyi Alba that patient may be ready for discharge tomorrow. Spoke with Rossi from [facility] and they do have a bed available and can take the patient tomorrow. Discharge plan is patient to [facility] tomorrow with [facility] hospice support. IRLANDA kumar. Date Signed: 12/02/2018 04:11 PM Electronically Signed By:Yoon Ledbetter LCSW Case Management Discharge Plan Note Case Management Discharge Discharge Order Complete? Answers: Yes Patient to Obtain Answers: Other Notes: via [facility] Transportation Arranged Answers: Other Notes: via stretcher with [facility] will Pick (Date 12/03/2018 02:30 PM & Time) Case Management Transport Answers: Yes Notes: PCS completed Form Complete Faxed Final Orders Answers: Yes Agency/Facility Transfer Answers: Yes Report Printed & Faxed to Receiving Agency Family Notified Answers: Yes Discharge Comments Notes: Patient is being discharged to [facility] on hospice with [facility]. Hospice nurse received report from unit RNEj Montesinos advised of pick-up time of 2:30 via stretcher arranged by [facility]. CM sent discharge orders to both facilities. CM available for changes. Date Signed: 12/03/2018 01:29 PM Electronically Signed By:Mayra Smith Intervention Information Intervention Type:*IM-Signed Date of Service:12/03/2018 10:07 AM Patient Type:Inpatient Staff Member:Katie Lorenzo Hours: Discipline: Severity: Comment:
--- NOTE | 2018-12-03 18:37 | PDDCSUM ---
Discharge Summary Discharge Summary: Discharge diagnosis Dress syndrome Cystitis Transaminitis Hyponatremia CVA Debility CAD Hypokalemia The patient is an 83-year-old female who was recently admitted to the hospital for an acute CVA complicated by NSTEMI. She recovered from that and was transferred to inpatient rehab. She developed a urinary tract infection was started on amoxicillin while in inpatient rehab. She developed acute confusion fevers and transaminitis. GI and Infectious Disease were consulted who felt that her symptoms represented dress syndrome. She was transitioned off of amoxicillin and on the meropenem. She completed a course of antibiotics and her LFTs were serially measured. Her LFTs trended down. The patient was initially confused but this seemed to resolve. She continued to have electrolyte abnormalities that required intravenous medications to correct. Patient remained fairly weak with substantial debility. The patient seemed to be lucid and expressed that she did not want any further care Saint multiple times that she wishes she was . She started refusing food and any oral medications. The situation was discussed with her family and MD TALLEY about whether not a PEG tube or parenteral nutrition should be started. The family discussed the situation and decided that they did not want any tube feedings or force nutrition. The patient continued to decline clinically as she had not eaten for multiple days. Ultimately the decision was made to make the patient comfort care and discharge her to a SNF with [facility] hospice assistance. Disposition [facility] facility with hospice I spent over 30 min on the discharge of this patient
[2018-12-03] MEDS ORDERED: SENNOSIDES/DOCUSATE SODIUM TAB PO SCH (21:00)
== END 2018-12-03 14:44 | DRG 441 ==
LOC: F3E 19:35
PROVIDERS: ADMIT Hospitalist; ATTEND Internal Medicine
DX: K71.2 Toxic liver disease with acute hepatitis (principal); D72.1 Eosinophilia; T36.0X5A Adverse effect of penicillins, initial encounter; N39.0 Urinary tract infection, site not specified; I21.4 Non-ST elevation (NSTEMI) myocardial infarction; I50.31 Acute diastolic (congestive) heart failure; J81.1 Chronic pulmonary edema; E87.1 Hypo-osmolality and hyponatremia; I69.354 Hemiplegia and hemiparesis following cerebral infarction affecting left non-dominant side; I11.0 Hypertensive heart disease with heart failure; E87.6 Hypokalemia; D64.9 Anemia, unspecified; R06.82 Tachypnea, not elsewhere classified; I25.10 Atherosclerotic heart disease of native coronary artery without angina pectoris; F41.9 Anxiety disorder, unspecified; F32.9 Major depressive disorder, single episode, unspecified; D72.810 Lymphocytopenia; Z66 Do not resuscitate; Z95.5 Presence of coronary angioplasty implant and graft; Z51.5 Encounter for palliative care
CPT/HCPCS: 84484-ER; 86644-90; 86645-90; 86664-90; 86665-90; 97110-GO; 97112-GO; 97112-GP; 97116-GP; 97162-GP; 97166-GO; 97530-GO; 97530-GP; 97535-GO; G0472; J0295; J0360; J1650; J1940; J2185; J2270; J3475; J3480; J7613